=== PATIENT | male | born 1945 | race Caucasian/White ===

== ENCOUNTER 2019-07-15 17:57 | Inpatient (IN) | payer MEDICARE, OTHER ==
[~2019-07-15] VITALS: Ht 177.8 cm; Wt 120.2 kg
[~2019-07-15 17:57] MED LIST: ACCUNEB SO1.25 MG/1; AEROSPAN8.9 GM; ASPIRIN81 M2 PO; AUGMENTIN 875875 MG PO; AZILECT1 MG; B12INJ; CALCIUM 500 +1 EAC6 PO; CARAFATE 1 GM TA1 G1 PO; CARBIDOPA-LEVO1 EAC9 PO; CLONAZEPAM 0.50.5 M1 PO; COUMADIN 2.5MG2.5 M1 PO; COUMADIN 5 MG TA5 M1 PO; ENBREL 25 MG KI25 M1 SUBQ; ENTACAPONE200 M1 PO; FINASTERIDE5 MG PO; FLOMAX0.4 MG; FLOMAX0.4 MG PO; FOLIC ACID1 MG PO; FUROSEMIDE 20 M20 M1 PO; KEFLEX500 MG PO; LANSOPRAZOLE15 MG; LEVEMIR FL100 UNIT/2 SUBQ; LEVEMIR SUBQ; LISINOPRIL10 MG PO; LISINOPRIL20 MG PO; LUNESTA2 MG PO; MACROBID 100 M100 M1; METHOTREXATE 22.5 M1 PO; METOPROLOL SUCC25 M1 PO; MIRALAX17 GM; MIRALAX17 GM PO; MS CONTIN15 MG; MS CONTIN15 MG PO; MULTI VITAMIN1 EACH PO; NEURONTIN 300300 M1 PO; NORCO 5-325 TA1 EAC1 PO; NOVOLOG100 UNIT/1 SUBQ; OMEPRAZOLE 20 M20 M1 PO; OMEPRAZOLE40 MG PO; POTASSIUM CHLO10 ME1 PO; POTASSIUM20 PO; PREDNISONE 5 MG5 M1 PO; PRIMIDONE50 MG PO; REGLAN 10 MG TA10 MG PO; SIMVASTATIN40 MG PO; SIMVASTATIN80 MG PO; STOOL SOFTENER50 MG PO; SULFASALAZINE500 M5 PO; TAMSULOSIN HCL0.4 M1 PO; TOPROL XL25 MG; VENLAFAXIN75 MG/1 T2 PO; XARELTO15 MG PO; XARELTO20 MG PO
[2019-07-15 18:03] VITALS: BP 140/63
[2019-07-15 18:57] LABS: ABSOLUTE EOSINOPHILS 0.2 thou/uL (0.0-0.7); ABSOLUTE LYMPHOCYTES 1.9 thou/uL (0.8-5.3); ABSOLUTE MONOCYTES 0.7 thou/uL (0.0-1.2); ABSOLUTE NEUTROPHILS 6.1 thou/uL (1.6-8.1); BASOPHILS 0.4 %; EOSINOPHILS 2.1 %; HEMOGLOBIN 11.7 gm/dL (14.0-18.0); MCH 29.9 pg (26.0-34.0); MCHC 33.4 g/dL (28.0-37.0); MCV 89.4 fL (80.0-100.0); MONOCYTES 8.3 %; MPV 7.7 fl. (7.2-11.1); NUCLEATED RBCS 0 /100WBC; PLATELET COUNT* 211 thou/uL (150-400); POLYS 68.2 %; RBC 3.91 mil/uL (4.50-6.00); RDW-CV 16.6 % (10.5-14.5); WBC 8.9 thou/uL (4.0-11.0)
[2019-07-15 19:06] LABS: CALCIUM 8.2 mg/dL (8.5-10.1); CREATININE 0.8 mg/dL (0.6-1.3); POTASSIUM 3.8 mmol/L (3.5-5.1)
[2019-07-15 19:10] LABS: TOTAL BILIRUBIN 0.4 mg/dL (<0.1-1.0); TOTAL PROTEIN 7.2 g/dL (6.4-8.2)
[2019-07-15 20:50] VITALS: BP 94/44
[2019-07-15 21:10] VITALS: BP 140/47
[2019-07-16] MEDS ORDERED: PROAIR HFA8.5 GM INH (03:48)
[2019-07-16] MEDS ORDERED: FIBERCON CHEWA625 MG PO (03:50)
[2019-07-16] MEDS ORDERED: VITAMIN D350 MCG PO (03:52)
[2019-07-16] MEDS ORDERED: PAIN RELIEF EX500 MG PO (03:54)
[2019-07-16] MEDS ORDERED: A AND D OINTM42.5 GM TOP (03:55)
[2019-07-16] MEDS ORDERED: CLOTRIMAZOLE 1%15 G1 TOP (03:59)
[2019-07-16] MEDS ORDERED: VITAMIN B-121000 MCG PO (04:02)
[2019-07-16] MEDS ORDERED: FLONASE 0.05%50 MCG NASAL (04:04)
[2019-07-16] MEDS ORDERED: GUAIFENESIN400 MG PO (04:09)
[2019-07-16] MEDS ORDERED: LANSOPRAZOLE30 MG PO (04:15)
[2019-07-16] MEDS ORDERED: CLARITIN10 M2 PO (04:16)
[2019-07-16] MEDS ORDERED: REMEDY ANTIFUNG85 GM TOP (04:30)
[2019-07-16] MEDS ORDERED: JANTOVEN2 MG PO (04:37)
[2019-07-16] MEDS ORDERED: LORAZEPAM 0.50.5 MG PO (04:37)
[2019-07-16] MEDS ORDERED: MAGNESIUM400 M1 PO (04:38)
[2019-07-16] MEDS ORDERED: IPRAT-ALBUT 0.5-3 ML INH (04:39)
--- NOTE | 2019-07-16 05:47 | NUR ---
RECEIVED PT FROM ED PER CART AT APPROX 2110. PT IS AWAKE AND ORIENTED X4. ASSESSMENT DONE AND CHARTED. PT HAS REDNESS AND SWELLING AND SOME WEEPING ON LEFT LOWER EXTREMITY, SOME DISCOLORATION ON THE RIGHT LOWER EXTREMITY. REDNESS ON THE BOTTOM, AND AN UNSTAGEABLE ULCER ON THE SACRAL AREA IS ALSO NOTED. WOUND PICTURES TAKEN AND WOUND CARE DONE, WOUND CARE CONSULT PLACED. PT IS ADVISED ON THE USE OF CALL LIGHT. FREQUENTLY USED ITEMS WITHIN REACH. HIGH FALL PRECAUTIONS IN PLACE. HOURLY ROUNDING DONE FOR PT SAFETY.
[2019-07-16 08:13] VITALS: BP 113/42
[2019-07-16] MEDS ORDERED: CARBIDOPA-LEVO1 EAC5 PO (09:09)
[2019-07-16] MEDS ORDERED: FUROSEMIDE 20 M20 M1 PO (09:11)
--- NOTE | 2019-07-16 11:44 | NUR ---
Nutrition: consult for wounds noted on rt leg and sacrum; awaiting evaulation. No wt hx, no intake record for breakfast. BMI indicates class II morbid obesity. Albumin 3.0. Meds reviewed. Pt sleeping soundly at visit. Pt ER report, pt with hx of chronic leg wounds. With limited info available, assess at low-mild nutrition risk. Will order Dylan BID.
[2019-07-16 16:00] VITALS: BP 148/71
--- NOTE | 2019-07-16 16:07 | NUR ---
ASSUMED CARE OF PT AROUND 0730 THIS AM. REFER TO ASSESSMENT. REINA PLACED THIS SHIFT FOR URINARY RETENTION. PT UNABLE TO COMPLETE US TO BLE THIS SHIFT D/T URINARY RETENTION. WILL RESCHEDULE FOR TOMORROW. PT/OT CONSULTED THIS SHIFT. ID CONSULTED THIS SHIFT. PHYSICIAN REQUESTING TO LEAVE LLE CELLULITIS RIGOBERTO AT THIS TIME. WOUND CARE CONSULTED THIS SHIFT. VSS. NO OTHER CONCERNS AT THIS TIME. CLWR. WCTM
[2019-07-16 16:33] LABS: URINE BILIRUBIN NEGATIVE (Negative); URINE BLOOD NEGATIVE (Negative); URINE CLARITY CLEAR; URINE COLOR YELLOW; URINE GLUCOSE-RANDOM NEGATIVE (Negative); URINE KETONES NEGATIVE (Negative); URINE LEUKOCYTES NEGATIVE (Negative); URINE NITRITE NEGATIVE (Negative); URINE PROTEIN NEGATIVE (Negative); URINE UROBILINOGEN 0.2 E.U./dl (0.2-1.0)
--- NOTE | 2019-07-16 16:59 | NUR ---
SW met with pt to complete initial assessment, introduce self, and SW role. Pt lives at home in an Independent living apt called [facility]. pt has oxygen at home through [employer] (sp?), motorized wc. pt has HH through [facility] and hospice. Pt has an aide through [facility] 3 x wk for bathing and housecleaning. SW to continue to follow to assist with safe dc planning.
[2019-07-16 19:30] VITALS: BP 133/61
[2019-07-17 05:36] LABS: HEMOGLOBIN 9.8 gm/dL (14.0-18.0); MCH 29.8 pg (26.0-34.0); MCHC 33.7 g/dL (28.0-37.0); MCV 88.5 fL (80.0-100.0); RBC 3.27 mil/uL (4.50-6.00); WBC 7.2 thou/uL (4.0-11.0)
[2019-07-17 05:46] LABS: INR 1.9; PROTIME 19.3 Seconds (9.20-11.50)
[2019-07-17 05:54] LABS: CALCIUM 7.5 mg/dL (8.5-10.1); CREATININE 0.7 mg/dL (0.6-1.3); MAGNESIUM 1.6 mg/dL (1.8-2.4); POTASSIUM 3.6 mmol/L (3.5-5.1)
[2019-07-17 06:20] VITALS: BP 123/55
--- NOTE | 2019-07-17 07:20 | NUR ---
PT SLEPT WELL THIS SHIFT. VSS ON 3L 02. MEDS GIVEN PER EMAR. Q2 TURN. FALL PRECAUTION IN PLACE. [facility] HOURLY ROUNDINGS MADE. WILL CONTINUE TO MONITOR.
[2019-07-17 08:35] VITALS: BP 127/55
[2019-07-17 12:23] LABS: % SATURATION 16 % (20-39); IRON 34 ug/dL (50-175)
[2019-07-17 17:04] VITALS: BP 113/39
--- NOTE | 2019-07-17 17:11 | NUR ---
PATIENT RESTING IN BED. PATIENT DENIES ANY PAIN. PATIENT WORKED WITH PHYSICAL THERAPY THIS AFTERNOON. PATIENT HAS ULTRASOUND THIS AM WITHOUT INCIDENT. PATIENT DENIES ANY NEEDS AT THIS TIME. CALL LIGHT WITHIN REACH.
[2019-07-17 20:00] VITALS: BP 141/64
--- NOTE | 2019-07-18 06:45 | NUR ---
PT SLEPT WELL THIS SHIFT. MEDS GIVEN PER EMAR. VSS ON 2L NC. NO BM NOTED THIS SHIFT. FALL PRECAUTION IN PLACE. Q2 TURN. CALL LIGHT WITHIN REACH. HOURLY ROUNDINGS MADE. WILL CONTINUE TO MONITOR.
[2019-07-18 07:27] LABS: HEMATOCRIT 30.7 % (42.0-52.0); HEMOGLOBIN 10.3 gm/dL (14.0-18.0); MCH 29.8 pg (26.0-34.0); MCHC 33.7 g/dL (28.0-37.0); MCV 88.6 fL (80.0-100.0); MPV 7.4 fl. (7.2-11.1); RBC 3.47 mil/uL (4.50-6.00); WBC 7.4 thou/uL (4.0-11.0)
[2019-07-18 07:32] LABS: INR 1.9; PROTIME 18.8 Seconds (9.20-11.50)
[2019-07-18 07:37] LABS: ALBUMIN 1.9 g/dL (3.4-5.0); CALCIUM 7.7 mg/dL (8.5-10.1); CREATININE 0.8 mg/dL (0.6-1.3); MAGNESIUM 1.5 mg/dL (1.8-2.4); POTASSIUM 3.6 mmol/L (3.5-5.1)
[2019-07-18 08:30] VITALS: BP 112/54
[2019-07-18 09:40] VITALS: BP 104/54
[2019-07-18 09:45] VITALS: BP 123/74
[2019-07-18 09:50] VITALS: BP 119/65
--- NOTE | 2019-07-18 12:56 | CON ---
[address] [address] CONSULTATION Name: LAKIA BENTON Room: [address] IN M.R.#: [id number] Admission: 07/15/19 Attend Phys: Allison Nelson MD Discharge: Date of : 41 Report #: [id number] THIS REPORT FOR: //name// cc: [facility] physician unknown [facility] physician unknown ~ THIS REPORT FOR: //name// CC: [facility] unknown [facility] Allison Nelson DATE OF SERVICE: 07/17/2019 INFECTIOUS DISEASE CONSULTATION ATTENDING PHYSICIAN: Allison Nelson M.D. REASON FOR EVALUATION: Left lower extremity inflammatory eruption is certainly a component of cellulitis, suspect chronic venous stasis insufficiency with dermatitis as well. HISTORY OF PRESENT ILLNESS: Chart reviewed, patient examined. This is a 73-year-old with fairly significant medical history including diabetes mellitus and rheumatoid arthritis, who has ongoing issues with repeated inflammatory eruptions, had issues bilaterally; right however cleared up, the left has recurrent inflammation. Tentatively diagnosed with cellulitis, has been hospitalized apparently on quite a few occasions, repeatedly responds to systemic therapy, I think primarily directed against staph and strep who notes had been on antibiotics for a number of weeks, who noted increasing pain and swelling associated with the left lower extremity, had been utilizing wound care with compression including a circaid bilaterally. Denies systemically having illness, although T-max overnight was 100.3. Denies any pulmonary or gastrointestinal-related complaints. His appetite has been generally good. Empirically started on combination with piperacillin, tazobactam as well as vancomycin, he is not toxic. ALLERGIES: LISTED TO METFORMIN AND PENTAZOCINE. CURRENT MEDICATIONS: Include warfarin, fluticasone, cyanocobalamin, cholecalciferol, folic acid, finasteride, furosemide, Sinemet, tamsulosin, prednisone 2.5 mg p.o. b.i.d., atorvastatin, metoprolol, primidone, insulin, Zosyn, lisinopril, loratadine, guaifenesin, , sucralfate, vancomycin, morphine as needed, and ondansetron as needed. PAST MEDICAL HISTORY: As noted above, diabetes mellitus type 2, history of Parkinson's, rheumatoid arthritis, osteoarthritis, fibromyalgia, [place] [address] CONSULTATION Name: LAKIA BENTON Room: [address]#: [id number] Admission: 07/15/19 Attend Phys: Allison Nelson MD Discharge: Date of : 43 Report #: [id number] history of DVT a number of years ago, irritable bowel syndrome, hypertension, and colon resection. SOCIAL HISTORY: Former smoker. No ethanol. No illicit drug use. FAMILY HISTORY: Noncontributory. REVIEW OF SYSTEMS: Otherwise unremarkable 10-point review of systems with the exception of the above. PHYSICAL EXAMINATION: GENERAL: He is pleasant, alert, cooperative, appears somewhat chronically ill, mildly undernourished. VITAL SIGNS: Temperature 98.2, pulse 62, respirations 18, blood pressure 127/55. SKIN: Warm, dry, no rashes. HEENT: Normocephalic. Extraocular muscles intact. NECK: Supple. LUNGS: Diminished, otherwise clear breath sounds. HEART: Regular. Borderline bradycardic. I do not appreciate a murmur. ABDOMEN: Soft, somewhat distended, obese, nontender. EXTREMITIES: Left lower extremity has a dyshidrotic appearance peeling skin in the setting of a clear dermopathy, may be a combination of venous stasis insufficiency and dermatitis, perhaps a component of diabetes-related complications as well. Distally difficult to ascertain a pulse. Previous left great toe amputation. There are no ulcerative lesions that are apparent. There were some eschars that were left intact. No bullous lesions, not overtly tender to palpation. Venous stasis, lower extremities show no evidence of DVT. GENITOURINARY: Deferred. RECTAL: Deferred. LABORATORY DATA: Blood cultures are sterile thus far. Electrolytes: Sodium 138, potassium 3.6, chloride 104, bicarb is 29, anion gap of 5, BUN and creatinine 9 and 0.7, albumin is low at 2.0, estimated GFR of 110. PT 19.3 and INR of 1.9. CBC, white count of 7.2, H and H 9.8 and 29.0, platelets of 178. Urinalysis is unremarkable. Liver functions were otherwise unremarkable. Total protein is 7.2. ASSESSMENT: Left lower extremity inflammatory eruption. It is almost certainly multifactorial. I think there is a component of skin and soft tissue infection with cellulitis. We will continue empiric antimicrobial therapy via parenteral route for the moment. Had a fairly lengthy discussion with the patient about these recurrent situations, quite difficult and underlying issue, certainly compression is a large factor, good skin health, try to elevate as much as possible. I do not know if there is any evidence arterial disease. He states [address] [place] [address] CONSULTATION Name: LAKIA BENTON Room: [address] IN M.R.#: [id number] Admission: 07/15/19 Attend Phys: Allison Nelson MD Discharge: Date of : 41 Report #: [id number] the arterial Dopplers he has had previously were otherwise unrevealing, may benefit from debridement at some point, we will await the results. <ELECTRONICALLY SIGNED> By: Pramod Deras MD 07/18/19 1256 1609 [id number] Deras MD /nt
--- NOTE | 2019-07-18 15:58 | NUR ---
WOUND NURSE: PATIENT SEEN TO ADDRESS COCCYX STAGE 3 PRESSURE INJURY, MEASURES 1.0 X 1.3 X 0.7 CM. PINK TO RED GRANULATION TISSUE IN THE WOUND BED. SMALL AMOUNT OF SEROUS DRAINAGE. CLEANSED WITH SOAP AND WATER, RINSED WITH WATER, THEN PATTED DRY. APPLIED SKIN PREP TO PERIWOUND TISSUE. PACKED LIGHTLY WITH AQUACEL AG UNDER BORDERED FOAM DRESSING. PATIENT REPOSITIONED ONTO HIS LEFT SIDE. PATIENT WITH LLE CELLULITIS AND SKIN IS DRY, SCALY, WARM TO TOUCH. DORSAL FOOT WITH THIN INFLAMMED SKIN, NO ACTIVE DRAINAGE PRESENT.CLEANSED WITH SOAP AND WATER, RINSED WITH WATER, THEN PATTED DRY. APPLIED CLEAR AID MOISTURE BARRIER TO INTACT SKIN TOES TO KNEE, APPLIED XERFORM GAUZE UNDER ABD TO DORSAL FOOT INFLAMMED SKIN, THEN WRAPPED TOES TO KNEE WITH KERLEX ROLL GAUZXE UNDER AKIKO WRAP. PATIENT INSTRUCTED ON NEED TO ELEVATE BLE ON PILLOWS FOR EDEMA CONTROL AND Q 2 HOUR REPOSITIONING SIDE TO SIDE FOR PRESSURE RELEIEF TO COCCYX . PATIENT STATES HE HAS SPECIAL SEAT CUSHIION WITH CUT OUT FOR COCCYX PRESSURE RELIEF AT HOME. PATIENT REMINED HE NEEDS TO USE IT IN HIS CHAIR WHEN SITTIING. PATIENT STATES HE UNDERSTANDS THE INSTRUCTIONS PROVIDED.
[2019-07-18 16:00] VITALS: BP 111/38
--- NOTE | 2019-07-18 16:13 | EKG ---
[place] [address] ELECTROCARDIOGRAM REPORT Name: LAKIA BENTON Room: [address] ADM IN .R.#: [id number] Admission: 07/15/19 Attend Phys: Allison Nelson, Discharge: Date of : 41 Date of Service: 07/18/19 1021 Report #: [id number] THIS REPORT FOR: //name// [place] Test Date: 2019-07-18 Test Time: 10:21:19 Pat Name: LAKIA BENTON Department: Room: [address] Gender: M It Applications Manager: JANIS : 1945 Requested By: Sana Mills Order Number: [id number] Adan MD: Oswald Bobby Measurements Intervals Tucker Rate: 62 P: 161 LA: 212 QRS: 99 QRSD: 143 T: 175 QT: 463 QTc: 471 Interpretive Statements Sinus or ectopic atrial rhythm,consider lead switch Atrial premature complex Borderline prolonged LA interval RBBB Borderline repolarization abnormality Compared to ECG 06/16/2006 20:33:47 Ectopic atrial rhythm now present Atrial premature complex(es) now present Intraventricular conduction delay now present Myocardial infarct finding no longer present Electronically Signed On 07-18-2019 16:12:10 CDT by Oswald Bobby [email or web address] <ELECTRONICALLY SIGNED> By: Oswald Bobby MD, [facility] 07/18/19 1612 1021 1021 Oswald Bobby MD, [facility] /EPI
--- NOTE | 2019-07-18 19:39 | NUR ---
PATIENT RESTING IN BED. PATIENT DEIES ANY PAIN. PATIENT HAD EPISODE OF DIAPHORESIS AND DIZZINESS THIS AM AND DR NELSON NOTIFIED AND ROUNDED ON PATIENT. PATIENT HAS DENIED ANY FURTHER EPISODE. PATIENT SEEN BY WOUND CARE NURSE THIS AFTERNOON AND DRESSING APPLIED TO LEFT LEG. PATIENT HAS GOOD APPETITE. PATIENT DENIES ANY NEEDS AT THIS TIME. CALL LIGHT WITHIN REACH.
[2019-07-18 20:00] VITALS: BP 121/47
--- NOTE | 2019-07-19 04:36 | NUR ---
PT A&O. ON 2L BY MI. MEDS GIVEN ORDERED. DRESSINGS C/D/I. LOWER EXTREMITIES ELEVATED ON PILLOW. REINA IN PLACE. HOURLY ROUNDINGS, TURNS COMPLETED. NO OTHER CONCERNS AT THIS TIME. WILL CONTINUE TO MONITOR.
[2019-07-19 04:50] LABS: HEMATOCRIT 27.8 % (42.0-52.0); HEMOGLOBIN 9.5 gm/dL (14.0-18.0); MCH 30.2 pg (26.0-34.0); MCHC 34.2 g/dL (28.0-37.0); MCV 88.1 fL (80.0-100.0); MPV 7.8 fl. (7.2-11.1); RBC 3.16 mil/uL (4.50-6.00); RDW-CV 15.9 % (10.5-14.5)
[2019-07-19 04:57] LABS: INR 1.8; PROTIME 18.2 Seconds (9.20-11.50)
[2019-07-19 05:06] LABS: ALBUMIN 1.8 g/dL (3.4-5.0); CALCIUM 7.4 mg/dL (8.5-10.1); CREATININE 0.9 mg/dL (0.6-1.3); MAGNESIUM 1.8 mg/dL (1.8-2.4); PHOSPHORUS* 3.1 mg/dL (2.5-4.9); POTASSIUM 3.6 mmol/L (3.5-5.1)
[2019-07-19 08:05] VITALS: BP 122/61
[2019-07-19 16:00] VITALS: BP 101/55
--- NOTE | 2019-07-19 16:45 | NUR ---
Pt to dc home on Monday with HH services; pt current with [facility] ph [phone] fax [phone]. SW sent H & P and face sheet, orders/med list to be sent upon dc day.
--- NOTE | 2019-07-19 18:52 | NUR ---
PT A&OX4 VSS. PT UP SBA TO BSC. LLE UNWRAPPED AND EXAMINED BY DR CARRASCO TODAY. DRESSING REPLACED BY THIS NURSE DIRECTED. PT ON 3L O2 BY [place]. PT IS ACCUCHECK, INSULIN ADMINISTERED ORDERED. PT HAS REINA CATHETER IN PLACE, PATENT W/YELLOW URINE IN COLLECTION BAG. B/P MEDS HELD THIS AM D/T LOWER READINGS. DR NELSON AWARE, DOSAGE MAY BE ADJUSTED BY PHYSICIAN TO ADDRESS THIS. PT REMAINS FOR CONTINUED IV ABX PER DR CARRASCO. PT RESTS IN BED WITH CALL LIGHT IN REACH. WILL CONTINUE TO MONITOR.
[2019-07-19 19:50] VITALS: BP 130/60
[2019-07-20 04:00] LABS: INR 1.8; PROTIME 17.8 Seconds (9.20-11.50)
--- NOTE | 2019-07-20 04:41 | NUR ---
ASSUMED CARE OF PT 07/19/19 AT APPROX 1915. PT A&OX4, ON 3L NC, NUNO MCCLELLAND IN PLACE, PT TURNED Q2H. SCHEDULED PAIN MEDS GIVEN ORDERED. WILL CONTINUE WITH PLAN OF CARE.
[2019-07-20 07:55] VITALS: BP 129/71
[2019-07-20 16:00] VITALS: BP 114/59
[2019-07-20 23:54] VITALS: BP 121/45
[2019-07-21 04:23] LABS: PROTIME 30.6 Seconds (9.20-11.50)
[2019-07-21 04:31] LABS: INR 3.1
--- NOTE | 2019-07-21 06:33 | NUR ---
PATIENT SLEPT PART OF THE NIGHT. IV FLUIDS AND ANTIBIOTICS WERE GIVEN ORDERED. PATIENT WAS GIVEN TYLENOL ONCE FOR PAIN IN ADDITION TO SCHEDULED MORPHINE. REINA REMAINS TO DEPENDENT DRAIN. WILL CONTINUE TO MONITOR.
[2019-07-21 08:05] VITALS: BP 125/63
[2019-07-21] MEDS ORDERED: FLUCONAZOLE200 MG PO (12:18)
[2019-07-21] MEDS ORDERED: MINOCYCLINE HC100 M2 PO (12:19)
[2019-07-21 12:31] VITALS: BP 125/63
--- NOTE | 2019-07-21 16:25 | NUR ---
PATIENT DISCHARGED TO HOME WITH HOME HEALTH. DISCHARGE PAPERS REVIEWED AND SIGNED. PRESCRIPTIONS CALLED TO PHARMACY. IV REMOVED. PATIENT ASSISTED WITH PACKING BELONGINGS AND GETTING DRESSED. WOUNDS REDRESSED. NO CAMERA AVAILABLE FOR DISCHARGE PHOTOS. PATIENT DENIES ANY FURTHER NEEDS. PATIENT TAKEN BY WHEELCHAIR VAN AT THIS TIME.
== END 2019-07-21 16:25 | disposition home health service (06) | DRG 603 ==
LOC: M.ERS 17:57 → M.TBA-ER 19:44 → M.3W 19:44 → M.TBA-ER 20:42 → M.3W 21:10
PROVIDERS: Family Medicine; Physician Assistant; ADMIT Internal Medicine; ATTEND Internal Medicine
PROC: 05HH33Z Insertion of Infusion Device into Left Hand Vein, Percutaneous Approach (ICD-10-PCS; principal; 2019-07-15)
DX: L03.116 Cellulitis of left lower limb (principal); J96.10 Chronic respiratory failure, unspecified whether with hypoxia or hypercapnia; E44.1 Mild protein-calorie malnutrition; K58.9 Irritable bowel syndrome, unspecified; G20 Parkinson's disease; M19.90 Unspecified osteoarthritis, unspecified site; M79.7 Fibromyalgia; I87.8 Other specified disorders of veins; L30.9 Dermatitis, unspecified; I89.0 Lymphedema, not elsewhere classified; G25.81 Restless legs syndrome; E66.01 Morbid (severe) obesity due to excess calories; E11.51 Type 2 diabetes mellitus with diabetic peripheral angiopathy without gangrene; J44.9 Chronic obstructive pulmonary disease, unspecified; I25.10 Atherosclerotic heart disease of native coronary artery without angina pectoris; E78.5 Hyperlipidemia, unspecified; I10 Essential (primary) hypertension; M06.9 Rheumatoid arthritis, unspecified; Z98.1 Arthrodesis status; Z90.49 Acquired absence of other specified parts of digestive tract; Z86.718 Personal history of other venous thrombosis and embolism; Z88.8 Allergy status to other drugs, medicaments and biological substances; Z79.899 Other long term (current) drug therapy; Z79.4 Long term (current) use of insulin; Z79.01 Long term (current) use of anticoagulants; Z87.891 Personal history of nicotine dependence; Z68.38 Body mass index [BMI] 38.0-38.9, adult; Z99.81 Dependence on supplemental oxygen; Z86.711 Personal history of pulmonary embolism

== ENCOUNTER 2019-09-16 13:02 | Inpatient (IN) | payer OTHER ==
[~2019-09-16] VITALS: Ht 177.8 cm; Wt 107.5 kg
--- NOTE | ~2019-09-16 | CON ---
[address] [address] CONSULTATION Name: LAKIA BENTON Room: [address] IN M.R.#: [id number] Admission: 09/16/19 Attend Phys: Zbigniew Richard MD Discharge: Date of : 41 Report #: [id number] THIS REPORT FOR: //name// cc: [facility] physician unknown [facility] physician unknown ~ THIS REPORT FOR: //name// CC: Zbigniew Richard [facility] unknown [employer] [facility] DATE OF SERVICE: 09/17/2019 HISTORY OF PRESENT ILLNESS: This is a 73-year-old male patient who was evaluated by me for Parkinson disease. This patient gives a complicated history. He indicates that he has Parkinson disease for a long time. He has not walked for a long time either and uses an electric wheelchair. I am not sure whether that is entirely because of Parkinson disease because he indicates that he also had surgery on his back in the past. He developed cellulitis in the lower extremities. He was admitted to [facility] and has become pretty significantly weak in both lower extremities now. According to him, the weakness is much worse than before. He was what looks like in residential facility and few members tested positive for COVID, but his COVID test was negative. He follows up with a neurologist at [facility], but he does not remember the name. He had a tremor starting in the right upper extremity long time ago and then it spread to the left upper extremity. Those symptoms appeared to be stable. He has the workup done with his neurologist in the past. REVIEW OF SYSTEMS: Indicate that he has a history of fibromyalgia, osteoarthritis, rheumatoid arthritis, diabetes, diabetic neuropathy, big toe amputation, DVT, knee surgery, hypertension, back surgery, colon resection, shoulder problem. This was his relevant 14-point review of systems. PAST MEDICAL HISTORY: Positive for Parkinson disease. FAMILY HISTORY: Unremarkable. SOCIAL HISTORY: He does not drink any alcohol. PHYSICAL EXAMINATION: Indicate he is alert. He is responsive. He does have some memory issues like he did not remember the name of his neurologist, but his speech looks intact. He thinks that is the baseline. Cranial nerve examination 2-12 looks mostly unremarkable. He believes his strength in the upper extremity is his baseline and he does do fairly well with that. In the lower extremities, he does have movement, but it is markedly diminished. He could not appreciate the position sense at all and whatever examination as [place] [address] CONSULTATION Name: LAKIA BENTON Room: [address] IN [facility]#: [id number] Admission: 09/16/19 Attend Phys: Zbigniew Richard MD Discharge: Date of : 41 Report #: [id number] the bandages does not look like he has any reflexes there. His tone is difficult to tell. He does not appear to be ataxic in the upper extremity. I could not look at the fundus. He does have some tremor, but that is relatively mild and his baseline. He does not have any thyroid mass. There is no carotid bruit. I cannot tell about pulses in the lower extremities. Cardiac and respiratory examination is unremarkable. Blood pressure is 155/75, respirations 18, pulse is 69, temperature is 98.5. His hemoglobin is low at 9.9. He did not have any imaging studies of the brain. He does have some swelling in the lower extremities, but that may be because of his cellulitis there. IMPRESSION AND PLAN: Pretty difficult to form in this patient. He does have neuropathy and that is probably because of diabetes. He also developed cellulitis. I think that aggravated his condition along with deconditioning, but something like spine pathology including spinal epidural abscess, etc. need to be excluded. He said he has no contraindication for MRI, so we will go ahead and do the MRI. We will also do some workup for neuropathy. We will see what rehab says and that is where he probably needs to go. I will also suggest checking an arterial Doppler of the lower extremities whenever that is possible. All of it was discussed with the patient in detail and he wants to follow this plan. Thank you very much for this referral. By: 1308 1408Herman Trejo MD /elizabeth
[2019-09-16 13:02] VITALS: BP 153/62
[~2019-09-16 13:02] MED LIST changes: +A AND D OINTM42.5 GM TOP; +CARBIDOPA-LEVO1 EAC5 PO; +CLARITIN10 M2 PO; +CLOTRIMAZOLE 1%15 G1 TOP; +FIBERCON CHEWA625 MG PO; +FLONASE 0.05%50 MCG NASAL; +FLUCONAZOLE200 MG PO; +GUAIFENESIN400 MG PO; +IPRAT-ALBUT 0.5-3 ML INH; +JANTOVEN2 MG PO; +LANSOPRAZOLE30 MG PO; +LORAZEPAM 0.50.5 MG PO; +MAGNESIUM400 M1 PO; +MINOCYCLINE HC100 M2 PO; +PAIN RELIEF EX500 MG PO; +PROAIR HFA8.5 GM INH; +REMEDY ANTIFUNG85 GM TOP; +VITAMIN B-121000 MCG PO; +VITAMIN D350 MCG PO
[2019-09-16] MEDS ORDERED: LANTUSSOLASTAR SUBQ (13:32)
[2019-09-16] MEDS ORDERED: HUMALOG JU100 UNIT/1 SUBQ (13:34)
[2019-09-16 13:49] LABS: ABSOLUTE BASOPHILS 0.1 thou/uL (0.0-0.2); ABSOLUTE EOSINOPHILS 0.2 thou/uL (0.0-0.7); ABSOLUTE LYMPHOCYTES 1.5 thou/uL (0.8-5.3); ABSOLUTE MONOCYTES 0.6 thou/uL (0.0-1.2); ABSOLUTE NEUTROPHILS 4.6 thou/uL (1.6-8.1); BASOPHILS 0.7 %; EOSINOPHILS 2.9 %; HEMATOCRIT 28.5 % (42.0-52.0); HEMOGLOBIN 9.7 gm/dL (14.0-18.0); LYMPHOCYTES 21.6 %; MCH 30.1 pg (26.0-34.0); MCV 88.6 fL (80.0-100.0); MPV 7.7 fl. (7.2-11.1); NUCLEATED RBCS 0 /100WBC; PLATELET COUNT* 164 thou/uL (150-400); POLYS 66.8 %; RBC 3.22 mil/uL (4.50-6.00); RDW-CV 15.7 % (10.5-14.5); WBC 6.9 thou/uL (4.0-11.0)
[2019-09-16 14:00] LABS: CALCIUM 7.9 mg/dL (8.5-10.1); CREATININE 0.7 mg/dL (0.6-1.3); POTASSIUM 3.7 mmol/L (3.5-5.1)
[2019-09-16 14:05] LABS: ALBUMIN 2.2 g/dL (3.4-5.0); TOTAL BILIRUBIN 0.4 mg/dL (<0.1-1.0)
[2019-09-16 14:47] LABS: URINE BILIRUBIN NEGATIVE (Negative); URINE BLOOD NEGATIVE (Negative); URINE CLARITY SL CLOUDY; URINE COLOR YELLOW; URINE GLUCOSE-RANDOM NEGATIVE (Negative); URINE KETONES 1+ (Negative); URINE PROTEIN NEGATIVE (Negative); URINE UROBILINOGEN 0.2 E.U./dl (0.2-1.0)
[2019-09-16 14:51] LABS: URINE LEUKOCYTES-REFLEX 2+ (Negative); URINE NITRITE-REFLEX POSITIVE (Negative)
[2019-09-16 14:58] LABS: BACTERIA-REFLEX >30 Many /HPF (None Seen); CASTS None Seen /LPF (None Seen); CRYSTALS None Seen /LPF (None Seen); SQUAMOUS 0-3 Few /LPF (0-3); URINE RBC 0-2 Rare /HPF (0-2); WBC CLUMPS Few (None Seen)
[2019-09-16 16:36] LABS: INR 2.7; PROTIME 26.8 Seconds (9.20-11.50)
[2019-09-16 16:38] VITALS: BP 168/74
--- NOTE | 2019-09-16 16:45 | NUR ---
PT ADMITTED TO JOINT SPINE UNIT. A&OX 4, P,W,D. INDWELLING REINA CATH INTACT AND PATENT. STAT LOCK TO RIGHT LEG. CLEAR MANUEL COLOR URINE NOTED. RIGHT HAND/WRIST RED AND SWOLLEN. WEAK IN ALL EXTREMITIES. NEEDS ASSIST TO EAT. WOUND DRESSING ON COCCYX AND FRANK LOWER LEGS WRAPPED DUE TO LYMPHEDEMA. WOUND CARE CONSULT IN AND WILL CALL THEM IN AM. PT GETS SCHEDULED PAIN MEDS FOR HX FIBROMYALGIA PAIN. WILL CONT. TO MONITOR.
--- NOTE | 2019-09-16 17:00 | EKG ---
[place] [address] ELECTROCARDIOGRAM REPORT Name: LAKIA BENTON Room: [address] ADM IN .R.#: [id number] Admission: 09/16/19 Attend Phys: Zbigniew Richard, Discharge: Date of : 41 Date of Service: 09/16/19 1309 Report #: [id number] THIS REPORT FOR: //name// [facility] ED Test Date: 2019-09-16 Test Time: 13:09:21 Pat Name: LAKIA BENTON Department: Room: [facility] Gender: M Getter Operator: CCD : 1945 Requested By: Kwame Blackwood Order Number: [id number] MD: Abdifatah Dewitt Measurements Intervals Howell Rate: 70 P: -4 OK: 208 QRS: 32 QRSD: 138 T: 3 QT: 428 QTc: 462 Interpretive Statements Sinus rhythm Right bundle branch block Compared to ECG 07/18/2019 10:21:19 Atrial premature complex(es) no longer present Electronically Signed On 09-16-2019 17:00:06 CDT by Abdifatah Dewitt [email or web address] <ELECTRONICALLY SIGNED> By: Abdifatah Dewitt MD, [facility] 09/16/19 1700 1309 1309 Abdifatah Dewitt MD, [facility] /EPI
[2019-09-16 17:38] VITALS: BP 156/68
[2019-09-16 21:00] VITALS: BP 146/61
[2019-09-17 04:11] LABS: INR 3.7; PROTIME 35.9 Seconds (9.20-11.50)
[2019-09-17 04:20] LABS: CREATININE 0.7 mg/dL (0.6-1.3); POTASSIUM 3.8 mmol/L (3.5-5.1)
[2019-09-17 04:29] LABS: ABSOLUTE EOSINOPHILS 0.2 thou/uL (0.0-0.7); ABSOLUTE LYMPHOCYTES 1.5 thou/uL (0.8-5.3); ABSOLUTE MONOCYTES 0.5 thou/uL (0.0-1.2); ABSOLUTE NEUTROPHILS 3.8 thou/uL (1.6-8.1); BASOPHILS 0.3 %; EOSINOPHILS 2.6 %; HEMATOCRIT 28.9 % (42.0-52.0); HEMOGLOBIN 9.9 gm/dL (14.0-18.0); LYMPHOCYTES 25.5 %; MCH 30.2 pg (26.0-34.0); MCHC 34.2 g/dL (28.0-37.0); MCV 88.3 fL (80.0-100.0); MPV 8.2 fl. (7.2-11.1); NUCLEATED RBCS 0 /100WBC; PLATELET COUNT* 170 thou/uL (150-400); POLYS 63.6 %; RBC 3.27 mil/uL (4.50-6.00)
--- NOTE | 2019-09-17 06:33 | NUR ---
PT SLEEP WAS RESTLESS THIS PM SHIFT. PT URINE IS MANUEL FROM REINA, HE HAS HAD EXCELLENT PO INTAKE. PT HAS VOICED NO COMPLAINTS, WCTM
[2019-09-17 07:15] VITALS: BP 155/75
--- NOTE | 2019-09-17 13:00 | NUR ---
SPOKE WITH PT. HE SAID HE LIVES AT THE [facility]. THESE ARE INDEPENDENT SR.APTS. NO SERVICES PROVIDED. IS CURRENTLY ON SERVICE WITH [facility]. HE ALSO GETS AN AIDE 3X/WEEK FROM [facility]. HE HAS O2 AT HOME THRU [employer] AND A MOTORIZED WC. HE IS NORMALLY ABLE TO TRANSFER TO HIS WC BY HIMSELF. HE IS WEAK AT THIS TIME AND CANNOT DO THIS. SISTER,MEGAN VIGIL IS HIS DPOA . HAD REHAB CONSULT BUT REHAB FEELS SNF MORE APPRORIATE. CALL FROM SIRI/[facility]-[phone]. SHE SAID THEY HAVE SAFETY CONCERNS ABOUT PT.RETURNING HOME ALONE IN CURRENT LIVING SITUATION. CM WILL DISCUSS WITH PT.
--- NOTE | 2019-09-17 13:12 | NUR ---
wound care nurse here looking pt pt's wounds.
--- NOTE | 2019-09-17 14:13 | NUR ---
Nutrition: Pt admitted with weakness, UTI. H/o Parkinsons, anemia, chronic BLE lymphedema. BLE wrapped d/t cellulitis. Ulcer on coccyx. Seen for pressure ulcer. Ordered Dylan BID. Wt: 237#. Eating well, CHO controlled diet. Albumin 2.2, prealb 10.6 - severely low, BG 128-144. Increased nutrient needs R/T wound healing AEB labs above, wounds precent. GOALS: tight BG control, Dylan BID. Mild risk.
--- NOTE | 2019-09-17 14:27 | NUR ---
pt to mri
--- NOTE | 2019-09-17 14:37 | NUR ---
WOUND NURSE: [facility] AND LEFT KNEE: PATIENT WAS WRAPPED FROM HOME FOR LYMPHEDEMA BY SOMEONE IN HOME HEALTH SERVICES. COCCYX WOUND MEASURED 2.0 X 1.0 X 1.0CM; CONTAINED 50% RED, GRANULATION TISSUE AND 50% PALE YELLOW SLOUGH. CLEANSED WITH SOAP AND WATER, RINSED WITH WATER, THEN PATTED DRY. APPLIED SKIN PREP TO INTACT PERIWOUND TISSUE. APPLIED THERAHONEY TO WOUND BED, COVERED WITH BORDERED FOAM DRESSING. REMOVED COMPRILAN WRAP FROM RLE, CLEANSED WITH SOAP AND WATER, RINSED, THEN PATTED DRY. APPLIED SINGLE LAYER SIZE E TUBIGRIP FROM TOES TO KNEE. NO RLE WOUND. REMOVED COMPRILAN WRAP FROM LLE AND FOAM DRESSING FROM L KNEE. CLEANSED WITH SOAP AND WATER, RINSED, PATTED DRY. APPLIED CLEAR AID BARRIER RUTH TO INTACT SKIN. APPLIED PETROLATUM GAUZE UNDER ABD TO L KNEE WOUND. WRAPPED LLE WITH KERLEX ROLL GAUZE UNDER AKIKO WRAPS. L KNEE WOUND MEASURED 1.0 X 0.3 X 0.1 CM. PRESENTED WITH PARTIAL THICKNESS TISSUE LOSS, PINK, NONGRANLATING TISSUE IN THE WOND BED, SMALL AMOUNT OF SEROUSANGUINOUS DRAINGE. PATIENT WAS ALSO SEEN BY OT LYMPHEDEMA SPECIALIST AND WE BOTH AGREED NOT TO USE THE COMPRILAN WRAPS WHILE PATIENT IN THE HOSPITAL. PATIENT INSTRUCTED TO KEEP BLE ELEVATED 15 DEG ABOVE HEART TO CONTROL PERIPHERAL EDEMA, ALSO INSTRUCTED ON SIDE TO SIDE REPOSITIONING TO OFF LOAD COCCYX WOUND. OFFERED TO SCHEDULE PATIENT TO BE SEEN IN [facility], BUT PATIENT REPORTS HE DOES NOT HAVE TRANSPORTATION.
--- NOTE | 2019-09-17 16:00 | NUR ---
pt back from MRI. TURNED ON RIGHT SIDE. IV LEFT LATERAL WRIST PAINFUL. STARTED NEW ONE ON LEFT WRIST MEDIAL.
[2019-09-17 16:30] VITALS: BP 98/54
--- NOTE | 2019-09-17 18:36 | NUR ---
A&O X4, PINK, WARM AND DRY. STATES PAIN IS UNDER CONTROL AT THIS TIME. INDWELLING REINA CATH INTACT AND PATENT STAT LOCKED TO RIGHT THIGH. IV PAINFUL SO DC'D IT AND PUT ANOTHER 20G IN LEFT MEDIAL WRIST, FLUSHES WITH EASE. WOUND NURSE CAME TODAY TO EVAL AND DRESS COCCYX FULL THICKNESS WOUND MEASURES 2CM LENGTH X 1CM WIDTH X 1CM DEEP. ALSO TOOK OFF BILATERAL LOWER LEG WRAPS. WASHED BILATERAL LOWER LEGS WITH SOAP AND WATER AND REDRESSED THEM. LEFT LOWER LEG WITH PARTIAL THICKNESS WOUND BELOW THE KNEE MEASURES 1CM LENGTH X .3CM WIDTH X .1 CM DEEP. PT WENT DOWN FOR MRI OF BACK. PATIENT HAS NOT HAD BM X 3 DAYS, MIRALAX GIVEN. PT TURNED TO LEFT SIDE AND BED MOVED SO HE CAN WATCH BASEBALL ON T.V. NO C/O AT THIS TIME. WILL CONTINUE TO MONITOR. TO MONITOR.
[2019-09-17 20:00] VITALS: BP 107/46
[2019-09-18 03:55] LABS: INR 3.7; PROTIME 36.1 Seconds (9.20-11.50)
--- NOTE | 2019-09-18 04:23 | NUR ---
PT A&O X 4, ON 3L BY LEANNE. MEDS GIVEN ORDERED. TYLENOL GIVEN FOR BACK PAIN. DRESSINGS C/D/I. LOWER EXTREMITIES ELEVATED ON PILLOW. REINA IN PLACE. CALL LIGHT WITHIN REACH. TURNS MADE. WILL CONTINUE TO MONITOR.
[2019-09-18 07:40] VITALS: BP 137/71
--- NOTE | 2019-09-18 13:18 | NUR ---
LYMPHEDEMA CONSULT: OT SPOKE WITH WOUNDCARE REGARDING THE COMPRILAN SHORT STRETCH WRAPS IN THE PATIENT'S PERSONAL BELONGINGS. THIS LYMPHEDEMA THERAPIST ADVISES TO D/C WRAPS SECONDARY TO DECREASED MOBILITY AT THIS TIME. THE USE OF SHORT STRETCH BANDAGES IS CONTRAINDICATED WITH SIGNIFICANTLY REDUCED MOBILITY STATUS. THANK YOU FOR THE REFERRAL.
--- NOTE | 2019-09-18 15:14 | NUR ---
cm disucss w/pt HH recommending him for a higher level of care. cm explored [facility] and LTC opions. pts stated "i feel safe being at home. I feel stronger now then when i came in when I get up and pivotng in my chair." My beleives PT will help him regain strength. pt signed vendor of choice form. pt does no wan to use [employer], [email or web address] or the [employer] for snf. cm faxed referral to [facility] [phone]. cm contacted pt's sister, Sindy, re her abiltiy to assist pt at d/c if he was approved for acute, as pt identified Sindy as someone who would be able to assist w/cares. sindy stated she could help "a couple days a week...from noon to four." also, sindy, as dpoa, will contact via to see if pt would quaifiy for increased aid hours/support. rehab liason update w/info.
[2019-09-18 15:49] VITALS: BP 115/68
--- NOTE | 2019-09-18 17:26 | NUR ---
Pt AOx4. forgetful. Pt is up with assist x1 to chair with gb and walker. Pt c/o chronic pain and receiving sched pain meds. Pt is on carb control diet and tolerates well. rehab consulted. Hourly rounding complete will continue to monitor
[2019-09-18 22:30] VITALS: BP 100/52
[2019-09-19 05:38] LABS: INR 2.5; PROTIME 24.4 Seconds (9.20-11.50)
--- NOTE | 2019-09-19 07:40 | NUR ---
PATIENT HAS SLEPT OFF AND ON DURING THE NIGHT. VSS ON 3L 02 VIA NASAL CANNULA. MEDICATIONS GIVEN ORDERED AND CHARTED. ASSESSMENT CHARTED. PATIENT HAS BEEN REPOSITIONED EVERY 2HRS. REINA TO DEPENDENT DRAINAGE WITH YELLOW URINE OUTPUT. IV IN LEFT FOREARM-SL. AKIKO WRAPS TO BILATERAL LEGS-C/D/I. FALL PRECAUTIONS IN PLACE AND HOURLY ROUNDS MADE. WILL CONTINUE WITH PLAN OF CARE AND NURSING TO MONITOR.
[2019-09-19 07:45] VITALS: BP 111/89
[2019-09-19 16:50] VITALS: BP 137/75
--- NOTE | 2019-09-19 18:33 | NUR ---
PT AOX4. PT UP WITH ASSIST X1 WITH GB AND WALKER. PT ON CARB CONTROL DIET AND TOLERATES WELL. PT RECEIVING IV ANTIBIOTICS, AWAITING CULTURES. RECEIVING PO MORPHINE SCHEDULED TO MANAGE CHRONIC PAIN. HOURLY ROUNDING COMPLETE. PROGRESSING TOWARDS GOALS
[2019-09-19 21:00] VITALS: BP 112/64
[2019-09-20 04:07] LABS: ABSOLUTE EOSINOPHILS 0.3 thou/uL (0.0-0.7); ABSOLUTE LYMPHOCYTES 1.7 thou/uL (0.8-5.3); ABSOLUTE MONOCYTES 0.4 thou/uL (0.0-1.2); ABSOLUTE NEUTROPHILS 3.2 thou/uL (1.6-8.1); BASOPHILS 0.5 %; EOSINOPHILS 6.1 %; HEMATOCRIT 27.4 % (42.0-52.0); HEMOGLOBIN 9.4 gm/dL (14.0-18.0); LYMPHOCYTES 30.4 %; MCH 30.1 pg (26.0-34.0); MCHC 34.2 g/dL (28.0-37.0); MCV 88.1 fL (80.0-100.0); MONOCYTES 6.7 %; MPV 7.9 fl. (7.2-11.1); NUCLEATED RBCS 0 /100WBC; PLATELET COUNT* 200 thou/uL (150-400); POLYS 56.3 %; RBC 3.11 mil/uL (4.50-6.00); RDW-CV 15.4 % (10.5-14.5); WBC 5.7 thou/uL (4.0-11.0)
[2019-09-20 04:15] LABS: INR 1.8; PROTIME 17.9 Seconds (9.20-11.50)
[2019-09-20 04:21] LABS: CALCIUM 8.1 mg/dL (8.5-10.1); CREATININE 0.9 mg/dL (0.6-1.3); POTASSIUM 3.5 mmol/L (3.5-5.1)
--- NOTE | 2019-09-20 06:39 | NUR ---
Alert and oriented x 4. He has a history of Parkinsons,some of his meds were late due to not being in the pyxis or in his patient drawer. Vitals were stable. His O2 sat on 2L has been 98-100%. He has slept well.
[2019-09-20 08:00] VITALS: BP 87/56
[2019-09-20] MEDS ORDERED: MS CONTIN15 MG PO (11:14)
[2019-09-20] MEDS ORDERED: JANTOVEN2 MG PO (11:14)
[2019-09-20] MEDS ORDERED: CIPRO500 MG PO (11:14)
[2019-09-20 16:22] VITALS: BP 91/60
--- NOTE | 2019-09-20 16:36 | NUR ---
per Liyah, pt has been accepted at [facility]. liyah is rn radiation this weekend and stated pt can transfer over the weekend need be [phone]. cm sent covid results per request. d/c orders need to be faxed at time of d/c. please provide pt w/the following info: [facility] at [phone]. patient has to reachout to them to update them about the change in his benefit. (this process can take up to 45 days, per cust srvc rep).
[2019-09-20 20:19] VITALS: BP 131/64
[2019-09-21 03:30] LABS: INR 2.3; PROTIME 22.9 Seconds (9.20-11.50)
[2019-09-21 08:34] VITALS: BP 117/74
[2019-09-21 14:41] VITALS: BP 117/74
--- NOTE | 2019-09-21 16:42 | NUR ---
PT DISCHARGED TO [facility] AT 1630 BY JOHN TONG. IV OUT. PAIN CONTROLLED. NAUSEA CONTROLLED. WRAPS ON BILAT LEGS CHANGED. SOFT BM TODAY. ATTEMPTED TO CALL REPORT, NO ANSWER AFTER 20MIN OF BEING ON HOLD. WILL CALL AGAIN. PERSONAL ITEMS SENT WITH PT. PAPER SCRIPT SENT WITH PT.
== END 2019-09-21 16:46 | DRG 57 ==
LOC: M.ERS 13:02 → M.TBA-ER 15:07 → M.ORTHSURG 15:07
PROVIDERS: Emergency Medicine Emergency Medical Services; ADMIT Internal Medicine; ATTEND Internal Medicine
DX: G20 Parkinson's disease (principal); N39.0 Urinary tract infection, site not specified; E44.0 Moderate protein-calorie malnutrition; G89.29 Other chronic pain; M19.90 Unspecified osteoarthritis, unspecified site; D64.9 Anemia, unspecified; I10 Essential (primary) hypertension; E11.40 Type 2 diabetes mellitus with diabetic neuropathy, unspecified; K58.9 Irritable bowel syndrome, unspecified; B96.1 Klebsiella pneumoniae [K. pneumoniae] as the cause of diseases classified elsewhere; B96.89 Other specified bacterial agents as the cause of diseases classified elsewhere; M79.7 Fibromyalgia; M06.9 Rheumatoid arthritis, unspecified; Z88.8 Allergy status to other drugs, medicaments and biological substances; Z90.49 Acquired absence of other specified parts of digestive tract; Z86.718 Personal history of other venous thrombosis and embolism; Z87.891 Personal history of nicotine dependence; Z98.1 Arthrodesis status; Z68.34 Body mass index [BMI] 34.0-34.9, adult; Z79.4 Long term (current) use of insulin; Z79.899 Other long term (current) drug therapy; Z79.01 Long term (current) use of anticoagulants; Z03.818 Encounter for observation for suspected exposure to other biological agents ruled out

== ENCOUNTER 2020-01-16 17:52 | Inpatient (IN) | payer OTHER ==
[~2020-01-16] VITALS: Ht 180.3 cm; Wt 98.4 kg
--- NOTE | ~2020-01-16 | EMS ---
[address] [address] EMS Patient Care Report Name: LAKIA BENTON Room: [address] IN .R.#: [id number] Admission: 01/16/20 Attend Phys: Yoni Martinez Discharge: Date of : 41 Report #: [id number] THIS REPORT FOR: //name// Report Transmitted: 01/17/2020 11:32 EMS Care Summary [facility] [place] Incident [id number] @ 01/16/2020 17:02 Incident Location [address] [place] [address] Patient Lakia Benton Male, 74 Years 1945 Patient Address [address] [place] [address] Patient History Cancer - Other Cancer Condition,Cellulitis,Chronic Obstructive Pulmonary Disease (COPD),Hyperlipidemia,Heart disease, unspecified,Type 2 diabetes mellitus,Parkinson's Disease, Patient Allergies , Chief Complaint None Disposition Transported No Lights/[place] Dispatch Reason Unknown Problem/Person Down Transported To [facility] Narrative [facility] dispatched to residence from and [facility] for med alarm. Arrived on scene with [facility]. Upon arrival, staff stated that they called EMS for patient weakness and shaking. Staff stated that patient began shaking for about 30 minutes about 45 minutes prior to EMS call and provided vitals at that time. [address] [address] EMS Patient Care Report Name: LAKIA BENTON Room: [address] IN [facility]#: [id number] Admission: 01/16/20 Attend Phys: Yoni Martinez Discharge: Date of : 43 Report #: [id number] Staff stated that patient was usually on oxygen and had been out previously in the afternoon and hadn't had a chance to take his medications or eat. Staff stated that they gave patient his medications and patient ate. Residence was noted to be clean and well kept with patient approximately groomed and good hygiene. Upon patient contact, patient was seen laying supine in the bed on 3L oxygen NC; no adventitious breath sounds, no gross bleeding, no obvious life threats. Patient was A&O x4 with a GCS of 15 with no complaints at this time. Patient denied any new pains, chest pain, SOA, dizziness, n/v, SHEN, change in vision, numbness, tingling, cough, fever. Patient stated he felt better after taking his medications and eating. Patient was noted to not be shaking as previously described with quality respirations of good depth and rate. initial vitals as charted. Staff and patient were informed of vitals with staff stating that they didn't think their pulse ox was "working probably". Patient sister was on scene and stated that patient was weak while on their outing and needed to go back to the hospital because he wasn't safe here by himself. Staff stated that they leave at 9pm and could not check on him. Patient and sister stated that patient was released from the hospital yesterday for celliulits; sister stated he "was discharged too soon". Bilateral legs were noted to have severe cellulitis with bilateral foot to knee swollen, red, and hot to touch. Legs were dry with no weeping noted. Patient stated he wanted to go to the hospital so "my sister doesn't worry about me being here by myself". Patient stated that he was discharged at night last from [facility]. Per patient, patient stated he was not leaving until the morning when staff was available to "take care of me". Patient stated he continued to tell the hospital that he wasn't leaving until the morning because "no one would be there" and had to be removed and escorted off the premise by security. Delay on scene for patient education. EMS asked patient what the goal/reason for transport to the hospital would be as patient denied any complaint. Patient stated "to admit me so I'm not here by myself at night" EMS questioned patient what his plan would be if the hospital did not admit him and discharged him in the night like last night at a time where staff was no longer available for him. Patient stated "Well I will cross that bridge when I get there if it happens". EMS discussed with patient terminal carman concerns that current living arrangement may not be the most appropriate for patient if staff leaves at 9pm and patient or family does not feel that he can be alone due to inability to take care of himself, even with a life alert button on hand for patient. Patient stated he had been to rehab before and it didn't "do anything" and stated he refused to move to assisted living but would not provide a reason why. Patient restated he wanted to go to the hospital so "my sister doesn't worry about me and so I have someone there to take care of me". EMS asked patient what he felt he needed assistance with EMS could provide the best care and resources for patient. Patient was unable to state how he was unable to take care of himself. Patient sister stated that patient was too weak to care for himself. Cot was placed in bedroom next to bed. Patient was assisted to transfer from supine to sit to stand and assisted to pivot to sit to the cot. Once seated, seatbelts x4 were applied for patient safety. Patient requested bag of belongings that was placed on the back of the cot. Patient was [facility] [address] [place] [address] EMS Patient Care Report Name: LAKIA BENTON Room: [facility]- ADM IN M.R.#: [id number] Admission: 01/16/20 Attend Phys: Yoni Martinez Discharge: Date of : 41 Report #: [id number] placed on 3L oxygen [place] EMS portable supply. Cot was moved to the unit where it was loaded and locked. In unit, patient was placed on 3L oxygen NC main tank supply. Physical was unremarkable. Patient continued to have no new complaints and restated that he felt better than he did prior to EMS call. Patient medical history was reviewed with patient unable to recall medications. Transport initated. En route, patient remained on 3L oxygen NC as is patient baseline. Patient vitals were monitored as charted. Patient had no change of condition en route. Patient denied onset of new symptoms. Patient comfort was attended to with position and temperture changes as requested. At destination, patient was removed from the monitor and remained on 3L oxygen NC as patient baseline. Cot was unlocked, unloaded, and moved to the ER. In ER, patient was placed on 3L oxygen NC hospital supply and transferred from EMS cot to hospital bed. Patient belonings were placed on chair with patient acknowledgement. Delay at destination for a nurse. Once available, verbal report was given. Due to patient weakness, patient was unable to sign EMS consent to transport and treat; recieving facility signed on behalf of patient. Transfer of care complete. *Transfer of care signature was not obtained prior to clearing facility due to oversight. [facility] had not left parking lot when error was discovered and EMS returned to obtain*. Initial Vitals @17:16SpO2: 100, @17:32SpO2: 100, @PTASpO2: 74, @17:16P: 77,R: 18,BP: 100/51, @17:32P: 75,R: 18,BP: 106/49, @PTAP: 174, @17:16GCS: 15, @17:32GCS: 15, @BUSINESS QUALITY ASSURANCE ANALYST @17:13 @17:19Glucose: 100, Assessments @17:13MENTAL:SKIN:HEENT:LUNG SOUNDS:ABDOMEN:PELVIS//GI:EXTREMITIES:PULSE:NEURO: Impression Malaise Procedures @PTAOther - Medication - 3.000 Liters per Minute (l/min [fluid]) - Nasal CannulaResponse: Unchanged@17:25Trauma Alert Timeline BUSINESS QUALITY ASSURANCE ANALYST,Other - Medication - 3.000 Liters per Minute (l/min [[place]]) [place] [address] EMS Patient Care Report Name: LAKIA BENTON Room: [address] ADM IN .R.#: [id number] Admission: 01/16/20 Attend Phys: Yoni Martinez Discharge: Date of : 41 Report #: [id number] Cannula,Response: Unchanged BUSINESS QUALITY ASSURANCE ANALYST,BP: / M,PULSE: ,RR: R,SPO2: 74 Ox,ETCO2: ,BG: ,PAIN: ,GCS: , BUSINESS QUALITY ASSURANCE ANALYST,BP: / M,PULSE: 174,RR: R,SPO2: Ox,ETCO2: ,BG: ,PAIN: ,GCS: , BUSINESS QUALITY ASSURANCE ANALYST,BP: / M,PULSE: ,RR: R,SPO2: Ox,ETCO2: ,BG: ,PAIN: ,GCS: , 17:00,Call Received 17:00,Dispatch Notified 17:00,Psap Call 17:02,Dispatched 17:02,En Route 17:09,On Scene 17:13,At Patient 17:13,BP: / M,PULSE: ,RR: R,SPO2: Ox,ETCO2: ,BG: ,PAIN: ,GCS: , 17:16,BP: / M,PULSE: ,RR: R,SPO2: 100 Ox,ETCO2: ,BG: ,PAIN: ,GCS: , 17:16,BP: 100/51 M,PULSE: 77,RR: 18 R,SPO2: Ox,ETCO2: ,BG: ,PAIN: ,GCS: , 17:16,BP: / M,PULSE: ,RR: R,SPO2: Ox,ETCO2: ,BG: ,PAIN: ,GCS: 15, 17:19,BP: / M,PULSE: ,RR: R,SPO2: Ox,ETCO2: ,B,PAIN: ,GCS: , 17:25,Trauma Alert, 17:25,Depart Scene 17:32,BP: / M,PULSE: ,RR: R,SPO2: 100 Ox,ETCO2: ,BG: ,PAIN: ,GCS: , 17:32,BP: 106/49 M,PULSE: 75,RR: 18 R,SPO2: Ox,ETCO2: ,BG: ,PAIN: ,GCS: , 17:32,BP: / M,PULSE: ,RR: R,SPO2: Ox,ETCO2: ,BG: ,PAIN: ,GCS: 15, 17:39,At Destination 17:55,Call Closed Disclaimer v1.1 Copyright 2020 [employer] This EMS Care Summary contains data elements from the applicable legal record (which may be displayed differently). It is designed to provide pertinent information for the following purposes: continuity of care, clinical quality, and state data reporting. The complete legal record is available to ED staff and administrators of the receiving hospital in [facility]'s Patient Tracker. All data is provided "as is."
[~2020-01-16 17:52] MED LIST changes: +CIPRO500 MG PO; +HUMALOG JU100 UNIT/1 SUBQ; +LANTUSSOLASTAR SUBQ
[2020-01-16 18:05] VITALS: BP 101/51
[2020-01-16] MEDS ORDERED: CALCIUM CARBON500 MG PO (18:17)
[2020-01-16] MEDS ORDERED: COMTAN200 MG PO (18:18)
[2020-01-16] MEDS ORDERED: CLEOCIN HCL150 MG PO (18:18)
[2020-01-16] MEDS ORDERED: NEURONTIN 300M300 M2 PO (18:19)
[2020-01-16] MEDS ORDERED: FOLIC ACID1 MG PO (18:19)
[2020-01-16] MEDS ORDERED: FLUNISOLIDE25 ML NASAL (18:19)
[2020-01-16] MEDS ORDERED: NOVOLOG FL100 UNIT/M SUBQ (18:19)
[2020-01-16] MEDS ORDERED: LEVEMIR FL100 UNIT/2 SUBQ (18:20)
[2020-01-16] MEDS ORDERED: PREVACID30 MG PO (18:20)
[2020-01-16] MEDS ORDERED: CVS SENNA PLUS1 EACH PO (18:21)
[2020-01-16] MEDS ORDERED: MIRALAX119 GM PO (18:21)
[2020-01-16] MEDS ORDERED: MAGNESIUM CITR100 GM PO (18:21)
[2020-01-16] MEDS ORDERED: SIMVASTATIN80 MG PO (18:22)
[2020-01-16 18:52] LABS: ABSOLUTE BASOPHILS 0.1 thou/uL (0.0-0.2); ABSOLUTE EOSINOPHILS 0.2 thou/uL (0.0-0.7); ABSOLUTE LYMPHOCYTES 1.8 thou/uL (0.8-5.3); ABSOLUTE MONOCYTES 0.7 thou/uL (0.0-1.2); BASOPHILS 0.8 %; EOSINOPHILS 1.6 %; HEMATOCRIT 31.8 % (42.0-52.0); HEMOGLOBIN 10.5 gm/dL (14.0-18.0); LYMPHOCYTES 16.6 %; MCH 30.2 pg (26.0-34.0); MCHC 33.2 g/dL (28.0-37.0); MCV 91.2 fL (80.0-100.0); MONOCYTES 6.2 %; MPV 7.6 fl. (7.2-11.1); NUCLEATED RBCS 0 /100WBC; PLATELET COUNT* 293 thou/uL (150-400); POLYS 74.8 %; RBC 3.48 mil/uL (4.50-6.00); RDW-CV 16.6 % (10.5-14.5); WBC 10.8 thou/uL (4.0-11.0)
[2020-01-16 18:59] LABS: CALCIUM 8.3 mg/dL (8.5-10.1); CREATININE 2.2 mg/dL (0.6-1.3); POTASSIUM 4.1 mmol/L (3.5-5.1)
[2020-01-16 19:02] LABS: INR 1.4; PROTIME 14.4 Seconds (9.20-11.50)
[2020-01-16 19:03] LABS: ALBUMIN 2.9 g/dL (3.4-5.0); TOTAL BILIRUBIN 0.6 mg/dL (<0.1-1.0)
[2020-01-16 20:58] LABS: ICTOTEST (BILI CONFIRMATORY) Negative (Negative); URINE BILIRUBIN 1+ (Negative); URINE BLOOD NEGATIVE (Negative); URINE CLARITY CLEAR; URINE COLOR YELLOW; URINE GLUCOSE-RANDOM NEGATIVE (Negative); URINE KETONES NEGATIVE (Negative); URINE LEUKOCYTES NEGATIVE (Negative); URINE NITRITE NEGATIVE (Negative); URINE PROTEIN TRACE (Negative); URINE SPECIFIC GRAVITY >= 1.030 (1.005-1.030); URINE UROBILINOGEN 0.2 E.U./dl (0.2-1.0)
[2020-01-16 23:00] VITALS: BP 91/39
[2020-01-16 23:02] VITALS: BP 85/38
[2020-01-16 23:20] VITALS: BP 71/37; BP 75/36
[2020-01-17] VITALS (7 sets, daily range): BP systolic 81–95; BP diastolic 30–60
[2020-01-17 09:43] LABS: CALCIUM 7.3 mg/dL (8.5-10.1); CREATININE 1.6 mg/dL (0.6-1.3)
[2020-01-17 09:46] LABS: MAGNESIUM 1.9 mg/dL (1.8-2.4); PHOSPHORUS* 5.2 mg/dL (2.5-4.9)
[2020-01-17 09:51] LABS: INR 1.5; PROTIME 15.9 Seconds (9.20-11.50)
--- NOTE | 2020-01-17 10:20 | EKG ---
[place] [address] ELECTROCARDIOGRAM REPORT Name: LAKIA BENTON Room: [address] ADM IN .R.#: [id number] Admission: 01/16/20 Attend Phys: Shereen Mancuso Discharge: Date of : 41 Date of Service: 01/16/20 1806 Report #: [id number] THIS REPORT FOR: //name// [facility] ED Test Date: 2020-01-16 Test Time: 18:06:21 Pat Name: LAKIA BENTON Department: Room: [facility] Gender: M Offshoring Manager: [facility] [place] 1945 Requested By: Monet Abbott Order Number: [id number] MD: Abdifatah Dewitt Measurements Intervals [place] Rate: 78 P: 18 AK: 208 QRS: 54 QRSD: 133 T: 29 QT: 422 QTc: 481 Interpretive Statements Sinus rhythm Right bundle branch block Compared to ECG 09/16/2019 13:09:21 No significant changes Electronically Signed On 01-17-2020 10:19:48 RECORDS AND TAPE RECORDINGS ENGINEER by Abdifatah Dewitt [email or web address] <ELECTRONICALLY SIGNED> By: Abdifatah Dewitt MD, FACC 01/17/20 1019 1806 1806 Abdifatah Dewitt MD, [facility] /EPI
[2020-01-17] MEDS ORDERED: MORPHINE SULFAT15 MG PO (13:16)
[2020-01-18 05:10] LABS: HEMATOCRIT 25.9 % (42.0-52.0); MCH 29.8 pg (26.0-34.0); MCHC 32.8 g/dL (28.0-37.0); MCV 90.7 fL (80.0-100.0); MPV 8.1 fl. (7.2-11.1); RBC 2.86 mil/uL (4.50-6.00); RDW-CV 16.7 % (10.5-14.5)
[2020-01-18 05:20] LABS: INR 1.4; PROTIME 14.6 Seconds (9.20-11.50)
[2020-01-18 05:29] LABS: ALBUMIN 2.2 g/dL (3.4-5.0); CALCIUM 7.6 mg/dL (8.5-10.1); CREATININE 0.9 mg/dL (0.6-1.3); MAGNESIUM 2.1 mg/dL (1.8-2.4); POTASSIUM 4.2 mmol/L (3.5-5.1); TOTAL BILIRUBIN 0.5 mg/dL (<0.1-1.0); TOTAL PROTEIN 5.7 g/dL (6.4-8.2)
[2020-01-18 05:43] LABS: HEMOGLOBIN 8.5 gm/dL (14.0-18.0)
[2020-01-18 07:30] VITALS: BP 99/50
[2020-01-18 16:40] VITALS: BP 115/56
[2020-01-18 20:25] VITALS: BP 130/59
[2020-01-19 04:56] LABS: INR 1.8; PROTIME 18.7 Seconds (9.20-11.50)
[2020-01-19 05:43] LABS: CALCIUM 8.2 mg/dL (8.5-10.1); CREATININE 0.6 mg/dL (0.6-1.3)
[2020-01-19 05:45] LABS: POTASSIUM 5.3 mmol/L (3.5-5.1)
[2020-01-19 08:00] VITALS: BP 123/67
[2020-01-19 17:03] VITALS: BP 120/57
[2020-01-19 20:20] VITALS: BP 151/71
[2020-01-20 05:28] LABS: PROTIME 35.6 Seconds (9.20-11.50)
[2020-01-20 05:41] LABS: INR 3.6
[2020-01-20 05:45] LABS: ALBUMIN 2.2 g/dL (3.4-5.0); CALCIUM 7.5 mg/dL (8.5-10.1); CREATININE 0.6 mg/dL (0.6-1.3); POTASSIUM 4.3 mmol/L (3.5-5.1); TOTAL BILIRUBIN 0.2 mg/dL (<0.1-1.0); TOTAL PROTEIN 5.5 g/dL (6.4-8.2)
[2020-01-20 08:00] VITALS: BP 123/66
[2020-01-20 16:07] LABS: INR 3.9; PROTIME 38.3 Seconds (9.20-11.50)
[2020-01-20 17:08] VITALS: BP 141/68
[2020-01-20 22:02] VITALS: BP 138/60
[2020-01-21 05:56] LABS: ABSOLUTE EOSINOPHILS 0.1 thou/uL (0.0-0.7); ABSOLUTE LYMPHOCYTES 1.4 thou/uL (0.8-5.3); ABSOLUTE MONOCYTES 0.4 thou/uL (0.0-1.2); ABSOLUTE NEUTROPHILS 3.4 thou/uL (1.6-8.1); BASOPHILS 0.7 %; EOSINOPHILS 2.7 %; HEMATOCRIT 26.1 % (42.0-52.0); HEMOGLOBIN 8.7 gm/dL (14.0-18.0); LYMPHOCYTES 25.8 %; MCH 30.5 pg (26.0-34.0); MCHC 33.2 g/dL (28.0-37.0); MONOCYTES 8.1 %; MPV 7.7 fl. (7.2-11.1); NUCLEATED RBCS 0 /100WBC; PLATELET COUNT* 226 thou/uL (150-400); POLYS 62.7 %; RBC 2.84 mil/uL (4.50-6.00); RDW-CV 16.6 % (10.5-14.5); WBC 5.4 thou/uL (4.0-11.0)
[2020-01-21 06:04] LABS: PROTIME 23.2 Seconds (9.20-11.50)
[2020-01-21 06:11] LABS: INR 2.3
[2020-01-21 06:27] LABS: ALBUMIN 2.1 g/dL (3.4-5.0); CREATININE 0.7 mg/dL (0.6-1.3); POTASSIUM 4.2 mmol/L (3.5-5.1); TOTAL BILIRUBIN 0.2 mg/dL (<0.1-1.0); TOTAL PROTEIN 5.2 g/dL (6.4-8.2)
[2020-01-21 08:30] VITALS: BP 147/70
[2020-01-21 16:00] VITALS: BP 144/64
[2020-01-22 06:27] LABS: INR 1.9; PROTIME 19.2 Seconds (9.20-11.50)
[2020-01-22 08:55] VITALS: BP 114/55
[2020-01-22 12:17] VITALS: BP 114/55
[2020-01-22] MEDS ORDERED: VANCOMYCIN HCL250 MG PO (12:47)
[2020-01-22 16:24] VITALS: BP 114/55
[2020-01-22 20:30] VITALS: BP 119/48
[2020-01-23 05:56] LABS: INR 1.7; PROTIME 17.2 Seconds (9.20-11.50)
[2020-01-23 08:05] VITALS: BP 152/71
[2020-01-23 08:27] VITALS: BP 114/55
[2020-01-23 10:13] VITALS: BP 114/55
== END 2020-01-23 10:35 | disposition home health service (06) | DRG 371 ==
LOC: M.ERS 17:52 → M.TBA-ER 19:32 → M.3W 19:32
PROVIDERS: Internal Medicine; Physician Assistant; ADMIT Internal Medicine; ATTEND Internal Medicine
DX: A04.72 Enterocolitis due to Clostridium difficile, not specified as recurrent (principal); N17.0 Acute kidney failure with tubular necrosis; E43 Unspecified severe protein-calorie malnutrition; R53.2 Functional quadriplegia; E87.2 Acidosis; D68.59 Other primary thrombophilia; Z20.828 Contact with and (suspected) exposure to other viral communicable diseases; I10 Essential (primary) hypertension; M06.9 Rheumatoid arthritis, unspecified; D64.9 Anemia, unspecified; G89.29 Other chronic pain; M54.9 Dorsalgia, unspecified; I95.9 Hypotension, unspecified; E86.9 Volume depletion, unspecified; I87.2 Venous insufficiency (chronic) (peripheral); M19.90 Unspecified osteoarthritis, unspecified site; E11.40 Type 2 diabetes mellitus with diabetic neuropathy, unspecified; K58.9 Irritable bowel syndrome, unspecified; E66.9 Obesity, unspecified; G20 Parkinson's disease; Z79.891 Long term (current) use of opiate analgesic; Z68.30 Body mass index [BMI] 30.0-30.9, adult; Z89.422 Acquired absence of other left toe(s); Z88.8 Allergy status to other drugs, medicaments and biological substances; Z86.718 Personal history of other venous thrombosis and embolism

== ENCOUNTER 2020-01-29 20:29 | Emergency (ER) | payer OTHER ==
[~2020-01-29] VITALS: Ht 177.8 cm; Wt 103.0 kg
--- NOTE | ~2020-01-29 | EMS ---
[facility] [address] [place] [address] EMS Patient Care Report Name: LAKIA BENTON [id number] Admission: 01/29/20 Attend Phys: Discharge: 01/29/20 Date of : 41 Report #: [id number] THIS REPORT FOR: //name// Report Transmitted: 01/30/2020 01:02 EMS Care Summary [facility] [place] Incident [id number] @ 01/29/2020 19:50 Incident Location [address] [place], [place] [id number] Patient LAKIA BENTON Male, 74 Years 1945 Patient Address [address] [place] [address] Patient History Cancer - Other Cancer Condition,Cellulitis,Chronic Obstructive Pulmonary Disease (COPD),Hyperlipidemia,Heart disease, unspecified,Type 2 diabetes mellitus,Parkinson's Disease, Patient Allergies , Chief Complaint Urination related symptom Disposition Transported No Lights/[place] Dispatch Reason Sick Person Transported To [facility] Narrative [facility] 308 DISPATCHED TO STATED LOCATION FOR MALE PT, UTI. ON INITITAL CONTACT WITH THE PT, HE WAS SEATED IN A WHEELCHAIR JUST INSIDE THE RESIDENCE. HE ADVISED US OF HIS RECENT MEDICAL HISTORY (CELLULITIS, C. DIFF) AND THAT HE BEGAN EXPERIENCING UTI SYMPTOMS EARLIER IN THE DAY. PT WAS ASSISTED ONTO THE [address] [address] EMS Patient Care Report Name: LAKIA BENTON Room: [facility]#: [id number] Admission: 01/29/20 Attend Phys: Discharge: 01/29/20 Date of : 41 Report #: [id number] STRETCHER, SECURED, AND MOVED TO THE AMBULANCE FOR TRANSPORT. VITAL SIGNS NOTED. I BEGAN LOOKING FOR AN IV SITE, PT ADVISED THAT HE OFTEN REQUIRES IV PLACEMENT USING ULTRASOUND GUIDANCE. PT RESTED COMFORTABLY DURING TRANSPORT, WITH NO CHANGES IN OVERALL CONDITION WHILE EN ROUTE. IN PERSON HANDOFF REPORT GIVEN TO RECEIVING NURSE INDICATED. PT CARE TRANSFERRED WITHOUT INCIDENT. UNIT IN SERVICE. END OF REPORT LEISA JAMIN [id number] Initial Vitals @19:59Pain: 09/15, @20:26Pain: 09/15, @20:08SpO2: 90, @20:19SpO2: 92, @20:22SpO2: 94, @20:08P: 89,R: 20,BP: 146/93, @20:19P: 77,R: 18,BP: 138/52, @20:08GCS: 15, @20:19GCS: 15, Assessments @19:59MENTAL:SKIN:HEENT:LUNG SOUNDS:ABDOMEN:PELVIS//GI:EXTREMITIES:PULSE:NEURO: Impression Urinary Tract Infection (UTI) Timeline 19:50,Call Received 19:50,Dispatch Notified 19:50,Psap Call 19:50,Dispatched 19:50,En Route 19:54,On Scene 19:59,At Patient 19:59,BP: / M,PULSE: ,RR: R,SPO2: Ox,ETCO2: ,BG: ,PAIN: 8,GCS: , 20:08,BP: / M,PULSE: ,RR: R,SPO2: 90 Ox,ETCO2: ,BG: ,PAIN: ,GCS: , 20:08,BP: 146/93 M,PULSE: 89,RR: 20 R,SPO2: Ox,ETCO2: ,BG: ,PAIN: ,GCS: , 20:08,BP: / M,PULSE: ,RR: R,SPO2: Ox,ETCO2: ,BG: ,PAIN: ,GCS: 15, 20:12,Depart Scene 20:19,BP: / M,PULSE: ,RR: R,SPO2: 92 Ox,ETCO2: ,BG: ,PAIN: ,GCS: , 20:19,BP: 138/52 M,PULSE: 77,RR: 18 R,SPO2: Ox,ETCO2: ,BG: ,PAIN: ,GCS: , 20:19,BP: / M,PULSE: ,RR: R,SPO2: Ox,ETCO2: ,BG: ,PAIN: ,GCS: 15, 20:22,BP: / M,PULSE: ,RR: R,SPO2: 94 Ox,ETCO2: ,BG: ,PAIN: ,GCS: , 20:24,At Destination 20:26,BP: / M,PULSE: ,RR: R,SPO2: Ox,ETCO2: ,BG: ,PAIN: 8,GCS: , 20:41,[place] [address] EMS Patient Care Report Name: LAKIA BENTON Room: [facility]#: [id number] Admission: 01/29/20 Attend Phys: Discharge: 01/29/20 Date of : 41 Report #: [id number] Disclaimer v1.1 Copyright 2020 [employer] This EMS Care Summary contains data elements from the applicable legal record (which may be displayed differently). It is designed to provide pertinent information for the following purposes: continuity of care, clinical quality, and state data reporting. The complete legal record is available to ED staff and administrators of the receiving hospital in [facility]'s Patient Tracker. All data is provided "as is."
[~2020-01-29 20:29] MED LIST changes: +CALCIUM CARBON500 MG PO; +CLEOCIN HCL150 MG PO; +COMTAN200 MG PO; +CVS SENNA PLUS1 EACH PO; +FLUNISOLIDE25 ML NASAL; +MAGNESIUM CITR100 GM PO; +MIRALAX119 GM PO; +MORPHINE SULFAT15 MG PO; +NEURONTIN 300M300 M2 PO; +NOVOLOG FL100 UNIT/M SUBQ; +PREVACID30 MG PO; +VANCOMYCIN HCL250 MG PO
[2020-01-29 20:57] LABS: URINE BILIRUBIN NEGATIVE (Negative); URINE BLOOD TRACE (Negative); URINE CLARITY CLOUDY; URINE COLOR DARK YELLOW; URINE GLUCOSE-RANDOM TRACE (Negative); URINE KETONES NEGATIVE (Negative); URINE PROTEIN TRACE (Negative)
[2020-01-29 21:00] LABS: URINE LEUKOCYTES-REFLEX 2+ (Negative); URINE NITRITE-REFLEX POSITIVE (Negative)
[2020-01-29 21:04] LABS: URINE WBC-REFLEX >25 Many /HPF (0-5)
[2020-01-29 21:05] LABS: HYALINE CASTS 0-3 Few /LPF (None Seen); WBC CLUMPS Few (None Seen)
[2020-01-29 21:06] LABS: CRYSTALS None Seen /LPF (None Seen); MUCUS None Seen strn/LPF (None Seen); SQUAMOUS NONE SEEN /LPF (0-3); URINE RBC 3-10 Few /HPF (0-2)
[2020-01-29] MEDS ORDERED: PHENAZOPYRIDIN200 M2 PO (21:06)
[2020-01-29] MEDS ORDERED: MACROBID 100 M100 M2 PO (21:06)
[2020-01-29 22:43] VITALS: BP 127/79
== END 2020-01-29 22:44 | disposition home or self-care (01) ==
LOC: M.ERS 20:29
PROVIDERS: Nurse Practitioner Family
DX: N39.0 Urinary tract infection, site not specified (principal); M06.9 Rheumatoid arthritis, unspecified; G89.29 Other chronic pain; Z88.8 Allergy status to other drugs, medicaments and biological substances

== ENCOUNTER → 2020-02-11 | Outpatient (CLI) | payer OTHER ==
[~2020-02-11] MED LIST changes: +MACROBID 100 M100 M2 PO; +PHENAZOPYRIDIN200 M2 PO
== END ==
LOC: M.WC 01-28 10:00
PROVIDERS: ATTEND Emergency Medicine Undersea and Hyperbaric Medicine
DX: E11.622 Type 2 diabetes mellitus with other skin ulcer (principal); L89.153 Pressure ulcer of sacral region, stage 3; L98.492 Non-pressure chronic ulcer of skin of other sites with fat layer exposed; L97.812 Non-pressure chronic ulcer of other part of right lower leg with fat layer exposed; L97.822 Non-pressure chronic ulcer of other part of left lower leg with fat layer exposed; I89.0 Lymphedema, not elsewhere classified; I11.0 Hypertensive heart disease with heart failure; I50.22 Chronic systolic (congestive) heart failure; G20 Parkinson's disease; M06.9 Rheumatoid arthritis, unspecified; Z86.718 Personal history of other venous thrombosis and embolism; Z87.891 Personal history of nicotine dependence; Z79.4 Long term (current) use of insulin; Z79.01 Long term (current) use of anticoagulants

== ENCOUNTER → 2020-02-18 | Outpatient (CLI) | payer OTHER | LOC: M.WC 09:53 | PROVIDERS: ATTEND Emergency Medicine Undersea and Hyperbaric Medicine | DX: E11.622 Type 2 diabetes mellitus with other skin ulcer (principal); L89.153 Pressure ulcer of sacral region, stage 3; L98.492 Non-pressure chronic ulcer of skin of other sites with fat layer exposed; L97.812 Non-pressure chronic ulcer of other part of right lower leg with fat layer exposed; L97.822 Non-pressure chronic ulcer of other part of left lower leg with fat layer exposed; I89.0 Lymphedema, not elsewhere classified; I11.0 Hypertensive heart disease with heart failure; I50.22 Chronic systolic (congestive) heart failure; G20 Parkinson's disease; M06.9 Rheumatoid arthritis, unspecified; Z86.718 Personal history of other venous thrombosis and embolism; Z87.891 Personal history of nicotine dependence ==

== ENCOUNTER → 2020-02-25 | Outpatient (CLI) | payer OTHER | LOC: M.WC 13:30 | PROVIDERS: ATTEND Emergency Medicine Undersea and Hyperbaric Medicine | DX: E11.622 Type 2 diabetes mellitus with other skin ulcer (principal); L97.812 Non-pressure chronic ulcer of other part of right lower leg with fat layer exposed; L97.822 Non-pressure chronic ulcer of other part of left lower leg with fat layer exposed; L89.153 Pressure ulcer of sacral region, stage 3; L98.492 Non-pressure chronic ulcer of skin of other sites with fat layer exposed; I89.0 Lymphedema, not elsewhere classified; I11.0 Hypertensive heart disease with heart failure; I50.9 Heart failure, unspecified; G20 Parkinson's disease; M06.9 Rheumatoid arthritis, unspecified; Z86.718 Personal history of other venous thrombosis and embolism; Z87.891 Personal history of nicotine dependence ==

== ENCOUNTER → 2020-03-03 | Outpatient (CLI) | payer OTHER | LOC: M.WC 13:59 | PROVIDERS: ATTEND Emergency Medicine Undersea and Hyperbaric Medicine | DX: E11.622 Type 2 diabetes mellitus with other skin ulcer (principal); L97.812 Non-pressure chronic ulcer of other part of right lower leg with fat layer exposed; L97.822 Non-pressure chronic ulcer of other part of left lower leg with fat layer exposed; L89.153 Pressure ulcer of sacral region, stage 3; L98.492 Non-pressure chronic ulcer of skin of other sites with fat layer exposed; I89.0 Lymphedema, not elsewhere classified; I11.0 Hypertensive heart disease with heart failure; I50.22 Chronic systolic (congestive) heart failure; G20 Parkinson's disease; M06.9 Rheumatoid arthritis, unspecified; Z86.718 Personal history of other venous thrombosis and embolism; Z87.891 Personal history of nicotine dependence ==

== ENCOUNTER 2020-03-06 20:58 | Inpatient (IN) | payer OTHER ==
[~2020-03-06] VITALS: Ht 180.3 cm; Wt 107.2 kg
--- NOTE | ~2020-03-06 | EMS ---
[facility] [address] [place] [address] EMS Patient Care Report Name: LAKIA FISHER Room: [address] Daniela#: [id number] Admission: 03/06/20 Attend Phys: Zbigniew Richard MD Discharge: Date of : 41 Report #: [id number] THIS REPORT FOR: //name// Report Transmitted: 03/07/2020 04:34 EMS Care Summary [facility] Olivia MD Incident [id number] @ 03/06/2020 20:03 Incident Location [address] [place] [address] Patient Lakia Fisher Male, 74 Years 1945 Patient Address [address] [place] [address] Patient History Cancer - Other Cancer Condition,Cellulitis,Chronic Obstructive Pulmonary Disease (COPD),Hyperlipidemia,Heart disease, unspecified,Type 2 diabetes mellitus,Parkinson's Disease,Congestive Heart Failure (CHF),Presence of coronary angioplasty implant and graft,Myocardial Infarction (ME),Primary osteoarthritis of other joints, Patient Allergies , Patient Medications Coumadin, Morphine / Naltrexone, Chief Complaint Weakness Disposition Transported No Lights/[place] Dispatch Reason Diabetic Problem Transported To [facility] [address] [place] [address] EMS Patient Care Report Name: LAKIA FISHER Room: [address] Daniela#: [id number] Admission: 03/06/20 Attend Phys: Zbigniew Richard MD Discharge: Date of : 41 Report #: [id number] [facility] dispatched to an independent living facility on hypoglycemia. [place] [employer] is on scene prior to arrival, obtaining a blood sugar. Blood sugar shows 32. Pt is seated in his electric wheelchair at a dining table. Pt is not completely alert, very lethargic but can answer some questions. Airway is clear and self-maintainable. Breathing is adequate. Skin is warm, pale, dry. Pt reports that he is very tired and cold. Pt is given one tube of oral glucose to raise blood sugar. Blood sugar reads 48. Vascular access is attempted unsuccessfully. Pt eats half of a peanut butter sandwich and drinks a bottle of powerade. Blood sugar reads 292. Pt is A/Ox4. Pt is very lethargic and slow to answer, reporting that he feels weak, tired, and cold. Pt reports that he does not normally feel this way. Pt agrees to be transported. Pt's electrical chair is wheeled to cot. Pt stands with assistance and pivots to sit on cot. Pt is secured to cot semi-haro's. Cot to unit. Transport to [facility]. See "Objective" for physical exam findings. See "Tr & Rx" for treatments and procedures. Pt continues to slouch to his left side and keeps his eyes closed for duration of transport. Pt denies any pain except for his chronic back pain. Pt denies nausea or dizziness. On arrival to [place], pt is unloaded from unit on cot, rolled into ED. Pt is transferred from cot to bed without incident. Report to nurse. Signatures and facesheet obtained. End pt contact. Ciara Jiménez; EMT-P. Initial Vitals @20:41SpO2: 96, @20:44SpO2: 99, @20:49SpO2: 94, @20:51SpO2: 99, @20:49 @20:50 @20:40P: 54,R: 14,BP: 125/58, @20:51P: 53,R: 14,BP: 117/56, @PTABP: 120/90, @20:40GCS: 14, @20:51GCS: 14, @PTAGCS: 14, @20:11 @20:44 @20:15Glucose: 32, @20:35Glucose: 292, @20:24Glucose: 48, Assessments @20:11MENTAL:SKIN:HEENT:LUNG SOUNDS:ABDOMEN:PELVIS//GI:EXTREMITIES:PULSE:NEURO: Impression [place] [address] EMS Patient Care Report Name: LAKIA FISHER Room: [address] M.R.#: [id number] Admission: 03/06/20 Attend Phys: Zbigniew Richard MD Discharge: Date of : 41 Report #: [id number] Procedures @20:16Other - Medication - 25.000 Grams (gms) - OralResponse: Improved@20:25 cc () Site: Hand-LeftResponse: UnchangedFailed@20:4912-Lead ECGResponse: UnchangedSucceeded@20:5012-Lead ECGResponse: UnchangedSucceeded Timeline LEGAL INSTRUCTOR,BP: 120/90 M,PULSE: ,RR: R,SPO2: Ox,ETCO2: ,BG: ,PAIN: ,GCS: , LEGAL INSTRUCTOR,BP: / M,PULSE: ,RR: R,SPO2: Ox,ETCO2: ,BG: ,PAIN: ,GCS: 14, 20:03,Call Received 20:03,Dispatch Notified 20:03,Psap Call 20:03,Dispatched 20:04,En Route 20:10,On Scene 20:11,At Patient 20:11,BP: / M,PULSE: ,RR: R,SPO2: Ox,ETCO2: ,BG: ,PAIN: ,GCS: , 20:15,BP: / M,PULSE: ,RR: R,SPO2: Ox,ETCO2: ,B,PAIN: ,GCS: , 20:16,Other - Medication - 25.000 Grams (gms) - Oral,Response: Improved 20:24,BP: / M,PULSE: ,RR: R,SPO2: Ox,ETCO2: ,B,PAIN: ,GCS: , 20:25, cc Site: Hand-Left,Response: UnchangedFailed, 20:35,BP: / M,PULSE: ,RR: R,SPO2: Ox,ETCO2: ,B,PAIN: ,GCS: , 20:40,BP: 125/58 M,PULSE: 54,RR: 14 R,SPO2: Ox,ETCO2: ,BG: ,PAIN: ,GCS: , 20:40,BP: / M,PULSE: ,RR: R,SPO2: Ox,ETCO2: ,BG: ,PAIN: ,GCS: 14, 20:41,BP: / M,PULSE: ,RR: R,SPO2: 96 Ox,ETCO2: ,BG: ,PAIN: ,GCS: , 20:44,BP: / M,PULSE: ,RR: R,SPO2: 99 Ox,ETCO2: ,BG: ,PAIN: ,GCS: , 20:44,Depart Scene 20:44,BP: / M,PULSE: ,RR: R,SPO2: Ox,ETCO2: ,BG: ,PAIN: ,GCS: , 20:49,12-Lead ECG,Response: UnchangedSucceeded, 20:49,BP: / M,PULSE: ,RR: R,SPO2: 94 Ox,ETCO2: ,BG: ,PAIN: ,GCS: , 20:49,BP: / M,PULSE: ,RR: R,SPO2: Ox,ETCO2: ,BG: ,PAIN: ,GCS: , 20:50,12-Lead ECG,Response: UnchangedSucceeded, 20:50,BP: / M,PULSE: ,RR: R,SPO2: Ox,ETCO2: ,BG: ,PAIN: ,GCS: , 20:51,BP: / M,PULSE: ,RR: R,SPO2: 99 Ox,ETCO2: ,BG: ,PAIN: ,GCS: , 20:51,BP: 117/56 M,PULSE: 53,RR: 14 R,SPO2: Ox,ETCO2: ,BG: ,PAIN: ,GCS: , 20:51,BP: / M,PULSE: ,RR: R,SPO2: Ox,ETCO2: ,BG: ,PAIN: ,GCS: 14, 21:00,At Destination 21:10,Call Closed Disclaimer v1.1 Copyright 2020 [employer] This EMS Care Summary contains data elements from the applicable legal record (which may be displayed differently). It is designed to provide pertinent information for the following purposes: continuity of care, clinical quality, and state data reporting. The complete legal record is available to ED staff and administrators of the receiving hospital in [employer] Patient Tracker[place] [address] EMS Patient Care Report Name: LAKIA FISHER Room: [address] M.R.#: [id number] Admission: 03/06/20 Attend Phys: Zbigniew Richard MD Discharge: Date of : 41 Report #: [id number] is provided "as is."
[2020-03-06 21:00] VITALS: BP 117/55
[2020-03-06] MEDS ORDERED: FUROSEMIDE 40 M40 MG PO (21:10)
[2020-03-06 22:12] LABS: ABSOLUTE EOSINOPHILS 0.1 thou/uL (0.0-0.7); ABSOLUTE LYMPHOCYTES 0.9 thou/uL (0.8-5.3); ABSOLUTE MONOCYTES 0.4 thou/uL (0.0-1.2); ABSOLUTE NEUTROPHILS 4.2 thou/uL (1.6-8.1); BASOPHILS 0.8 %; EOSINOPHILS 1.9 %; HEMATOCRIT 26.7 % (42.0-52.0); HEMOGLOBIN 8.5 gm/dL (14.0-18.0); LYMPHOCYTES 16.2 %; MCH 28.1 pg (26.0-34.0); MCHC 31.9 g/dL (28.0-37.0); MONOCYTES 7.2 %; NUCLEATED RBCS 0 /100WBC; PLATELET COUNT* 224 thou/uL (150-400); POLYS 73.9 %; RBC 3.03 mil/uL (4.50-6.00); RDW-CV 16.8 % (10.5-14.5); WBC 5.7 thou/uL (4.0-11.0)
[2020-03-06 22:23] LABS: ANION GAP 7 mmol/L (7-16); BUN 9 mg/dL (7-18); CHLORIDE 107 mmol/L (98-107); CO2 25 mmol/L (21-32); CREATININE 0.7 mg/dL (0.6-1.3); GLUCOSE 94 mg/dL (70-99); POTASSIUM 3.6 mmol/L (3.5-5.1); SODIUM 139 mmol/L (136-145)
[2020-03-06 22:26] LABS: PROTIME 78.5 Seconds (9.20-11.50)
[2020-03-06 22:33] LABS: ALBUMIN 2.3 g/dL (3.4-5.0); ALKALINE PHOSPHATASE 94 U/L (46-116); LIPASE 46 U/L (73-393); MAGNESIUM 1.6 mg/dL (1.8-2.4); NT-PRO BRAIN NAT PEPTIDE 1406 pg/mL (<300); SGOT 25 U/L (15-37); TOTAL BILIRUBIN 0.2 mg/dL (<0.1-1.0); TOTAL PROTEIN 5.8 g/dL (6.4-8.2)
[2020-03-06 22:34] LABS: SGPT < 6 U/L (30-65)
[2020-03-06 22:58] LABS: INR > 8.0
[2020-03-07] VITALS (7 sets, daily range): BP systolic 127–182; BP diastolic 61–72
[2020-03-07 04:00] LABS: URINE BILIRUBIN NEGATIVE (Negative); URINE BLOOD TRACE (Negative); URINE CLARITY SL CLOUDY; URINE COLOR YELLOW; URINE GLUCOSE-RANDOM NEGATIVE (Negative); URINE KETONES NEGATIVE (Negative); URINE PROTEIN NEGATIVE (Negative); URINE SPECIFIC GRAVITY 1.015 (1.005-1.030); URINE UROBILINOGEN 0.2 E.U./dl (0.2-1.0)
[2020-03-07 04:01] LABS: URINE LEUKOCYTES-REFLEX 3+ (Negative); URINE NITRITE-REFLEX POSITIVE (Negative)
[2020-03-07 05:26] LABS: BACTERIA-REFLEX >30 Many /HPF (None Seen); CASTS None Seen /LPF (None Seen); CRYSTALS None Seen /LPF (None Seen); SQUAMOUS 0-3 Few /LPF (0-3); URINE RBC 0-2 Rare /HPF (0-2); URINE WBC-REFLEX >25 Many /HPF (0-5)
[2020-03-07 11:14] LABS: PROTIME 65.4 Seconds (9.20-11.50)
[2020-03-07 11:17] LABS: INR 6.9
[2020-03-08 00:18] VITALS: BP 144/65
[2020-03-08 02:05] LABS: GLYCOHEMOGLOBIN (HGB A1C) 5.4 % (4.8-5.6)
[2020-03-08 04:00] VITALS: BP 153/68
[2020-03-08 05:53] LABS: ABSOLUTE BASOPHILS 0.1 thou/uL (0.0-0.2); ABSOLUTE EOSINOPHILS 0.2 thou/uL (0.0-0.7); ABSOLUTE LYMPHOCYTES 1.5 thou/uL (0.8-5.3); ABSOLUTE MONOCYTES 0.4 thou/uL (0.0-1.2); ABSOLUTE NEUTROPHILS 3.8 thou/uL (1.6-8.1); BASOPHILS 1.9 %; EOSINOPHILS 2.9 %; HEMATOCRIT 25.8 % (42.0-52.0); HEMOGLOBIN 8.4 gm/dL (14.0-18.0); LYMPHOCYTES 25.4 %; MCH 28.3 pg (26.0-34.0); MCHC 32.8 g/dL (28.0-37.0); MCV 86.5 fL (80.0-100.0); MONOCYTES 6.6 %; MPV 7.8 fl. (7.2-11.1); NUCLEATED RBCS 0 /100WBC; PLATELET COUNT* 228 thou/uL (150-400); POLYS 63.2 %; RBC 2.98 mil/uL (4.50-6.00); RDW-CV 16.8 % (10.5-14.5)
[2020-03-08 06:13] LABS: CREATININE 0.7 mg/dL (0.6-1.3)
[2020-03-08 06:16] LABS: PROTIME 36.2 Seconds (9.20-11.50)
[2020-03-08 06:17] LABS: INR 3.7
[2020-03-08 07:57] VITALS: BP 140/61
[2020-03-08 12:00] VITALS: BP 159/73
[2020-03-08 21:15] VITALS: BP 143/73
[2020-03-09] VITALS: BP 137/58
[2020-03-09 04:00] VITALS: BP 139/66
[2020-03-09 04:44] LABS: ABSOLUTE EOSINOPHILS 0.2 thou/uL (0.0-0.7); ABSOLUTE LYMPHOCYTES 1.3 thou/uL (0.8-5.3); ABSOLUTE MONOCYTES 0.4 thou/uL (0.0-1.2); ABSOLUTE NEUTROPHILS 4.4 thou/uL (1.6-8.1); BASOPHILS 0.6 %; EOSINOPHILS 3.6 %; HEMATOCRIT 28.2 % (42.0-52.0); HEMOGLOBIN 9.3 gm/dL (14.0-18.0); LYMPHOCYTES 20.3 %; MCH 28.4 pg (26.0-34.0); MCHC 32.9 g/dL (28.0-37.0); MCV 86.5 fL (80.0-100.0); MONOCYTES 6.2 %; MPV 7.7 fl. (7.2-11.1); NUCLEATED RBCS 0 /100WBC; PLATELET COUNT* 256 thou/uL (150-400); POLYS 69.3 %; RBC 3.27 mil/uL (4.50-6.00); RDW-CV 16.7 % (10.5-14.5); WBC 6.3 thou/uL (4.0-11.0)
[2020-03-09 04:47] LABS: CALCIUM 8.6 mg/dL (8.5-10.1); CREATININE 0.8 mg/dL (0.6-1.3); POTASSIUM 3.8 mmol/L (3.5-5.1)
[2020-03-09 04:50] LABS: PROTIME 20.6 Seconds (9.20-11.50)
[2020-03-09 08:00] VITALS: BP 138/63
--- NOTE | 2020-03-09 10:26 | EKG ---
[place] [address] ELECTROCARDIOGRAM REPORT Name: LAKIA BENTON Room: [address] ADM IN [facility].#: [id number] Admission: 03/07/20 Attend Phys: Zbigniew Richard, Discharge: Date of : 41 Date of Service: 03/06/202128 Report #: [id number] THIS REPORT FOR: //name// [facility] ED Test Date: 2020-03-06 Test Time: 21:29:16 Pat Name: LAKIA BENTON Department: Room: [facility] Gender: M Investigative Shopper: SAUL : 1945 Requested By: Sydni Mendoza Order Number: [id number] MD: Abdifatah Dewitt Measurements Intervals [place] Rate: 53 P: 31 WV: 252 QRS: 42 QRSD: 135 T: -2 QT: 505 QTc: 475 Interpretive Statements Sinus bradycardia Prolonged [place] interval Right bundle branch block Compared to ECG 01/16/2020 18:06:21 rate has slowed Electronically Signed On 03-09-2020 10:26:24 HIGH SCHOOL ASSISTANT FOOTBALL COACH by Abdifatah Dewitt [email or web address] <ELECTRONICALLY SIGNED> By: Abdifatah Dewitt MD, FACC 03/09/20 1026 28 28 Abdifatah Dewitt MD, [facility] /EPI
[2020-03-09 11:15] VITALS: BP 138/63
[2020-03-09 12:00] VITALS: BP 163/86
[2020-03-09] MEDS ORDERED: JANTOVEN2 MG PO (12:09)
[2020-03-09] MEDS ORDERED: CEFDINIR300 MG PO (12:09)
[2020-03-09 14:46] VITALS: BP 138/63
== END 2020-03-09 15:30 | disposition home or self-care (01) | DRG 690 ==
LOC: M.ERS 20:58 → M.TBA-ER 23:57 → M.2W 03-07 00:29
PROVIDERS: Emergency Medicine; Internal Medicine; ADMIT Internal Medicine; ATTEND Internal Medicine
DX: N39.0 Urinary tract infection, site not specified (principal); E44.1 Mild protein-calorie malnutrition; L03.116 Cellulitis of left lower limb; L03.115 Cellulitis of right lower limb; E11.649 Type 2 diabetes mellitus with hypoglycemia without coma; Z20.822 Contact with and (suspected) exposure to COVID-19; G89.29 Other chronic pain; M54.9 Dorsalgia, unspecified; M06.9 Rheumatoid arthritis, unspecified; E66.01 Morbid (severe) obesity due to excess calories; M19.90 Unspecified osteoarthritis, unspecified site; L98.429 Non-pressure chronic ulcer of back with unspecified severity; E83.42 Hypomagnesemia; K59.00 Constipation, unspecified; Z96.651 Presence of right artificial knee joint; M75.101 Unspecified rotator cuff tear or rupture of right shoulder, not specified as traumatic; E11.42 Type 2 diabetes mellitus with diabetic polyneuropathy; G20 Parkinson's disease; B96.20 Unspecified Escherichia coli [E. coli] as the cause of diseases classified elsewhere; D50.9 Iron deficiency anemia, unspecified; T45.515A Adverse effect of anticoagulants, initial encounter; Y92.89 Other specified places as the place of occurrence of the external cause; Z68.33 Body mass index [BMI] 33.0-33.9, adult; Z88.8 Allergy status to other drugs, medicaments and biological substances; Z95.5 Presence of coronary angioplasty implant and graft; Z79.891 Long term (current) use of opiate analgesic

== ENCOUNTER → 2020-03-10 | Outpatient (CLI) | payer OTHER ==
[~2020-03-10] MED LIST changes: +CEFDINIR300 MG PO; +FUROSEMIDE 40 M40 MG PO
== END ==
LOC: M.WC 13:55
PROVIDERS: ATTEND Emergency Medicine Undersea and Hyperbaric Medicine
DX: E11.622 Type 2 diabetes mellitus with other skin ulcer (principal); L97.812 Non-pressure chronic ulcer of other part of right lower leg with fat layer exposed; L97.822 Non-pressure chronic ulcer of other part of left lower leg with fat layer exposed; L89.153 Pressure ulcer of sacral region, stage 3; L98.492 Non-pressure chronic ulcer of skin of other sites with fat layer exposed; I89.0 Lymphedema, not elsewhere classified; I11.0 Hypertensive heart disease with heart failure; I50.22 Chronic systolic (congestive) heart failure; G20 Parkinson's disease; M06.9 Rheumatoid arthritis, unspecified; Z86.718 Personal history of other venous thrombosis and embolism; Z87.891 Personal history of nicotine dependence

== ENCOUNTER 2020-03-25 16:31 | Inpatient (IN) | payer OTHER ==
[~2020-03-25] VITALS: Ht 177.8 cm; Wt 107.4 kg
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
[2020-03-25 16:34] VITALS: BP 118/57
[2020-03-25 17:17] LABS: ABSOLUTE EOSINOPHILS 0.1 thou/uL (0.0-0.7); ABSOLUTE LYMPHOCYTES 0.9 thou/uL (0.8-5.3); ABSOLUTE MONOCYTES 0.5 thou/uL (0.0-1.2); ABSOLUTE NEUTROPHILS 4.1 thou/uL (1.6-8.1); BASOPHILS 0.6 %; EOSINOPHILS 1.8 %; HEMATOCRIT 26.1 % (42.0-52.0); HEMOGLOBIN 8.3 gm/dL (14.0-18.0); LYMPHOCYTES 15.8 %; MCH 27.2 pg (26.0-34.0); MCHC 31.7 g/dL (28.0-37.0); MONOCYTES 8.8 %; MPV 7.5 fl. (7.2-11.1); NUCLEATED RBCS 0 /100WBC; PLATELET COUNT* 215 thou/uL (150-400); RBC 3.03 mil/uL (4.50-6.00); RDW-CV 16.3 % (10.5-14.5); WBC 5.7 thou/uL (4.0-11.0)
[2020-03-25 17:25] LABS: ANION GAP 9 mmol/L (7-16); BUN 11 mg/dL (7-18); CALCIUM 8.3 mg/dL (8.5-10.1); CHLORIDE 105 mmol/L (98-107); CO2 24 mmol/L (21-32); CREATININE 0.7 mg/dL (0.6-1.3); GLUCOSE 77 mg/dL (70-99); SODIUM 138 mmol/L (136-145)
[2020-03-25 17:28] LABS: APTT 36.1 Seconds (25.0-31.3); INR 2.6; PROTIME 26.1 Seconds (9.20-11.50)
[2020-03-25 17:36] LABS: ALBUMIN 2.4 g/dL (3.4-5.0); ALKALINE PHOSPHATASE 86 U/L (46-116); NT-PRO BRAIN NAT PEPTIDE 1562 pg/mL (<300); SGOT 17 U/L (15-37); SGPT < 6 U/L (30-65); TOTAL BILIRUBIN 0.3 mg/dL (<0.1-1.0); TOTAL PROTEIN 5.7 g/dL (6.4-8.2)
[2020-03-25 18:36] VITALS: BP 150/73
[2020-03-25 18:49] VITALS: BP 145/81
[2020-03-25 20:00] VITALS: BP 154/70
[2020-03-25 23:51] LABS: URINE BILIRUBIN NEGATIVE (Negative); URINE BLOOD TRACE (Negative); URINE CLARITY CLEAR; URINE COLOR YELLOW; URINE GLUCOSE-RANDOM NEGATIVE (Negative); URINE KETONES NEGATIVE (Negative); URINE LEUKOCYTES-REFLEX NEGATIVE (Negative); URINE NITRITE-REFLEX NEGATIVE (Negative); URINE PROTEIN NEGATIVE (Negative); URINE SPECIFIC GRAVITY 1.015 (1.005-1.030); URINE UROBILINOGEN 0.2 E.U./dl (0.2-1.0)
[2020-03-26] VITALS (7 sets, daily range): BP systolic 94–169; BP diastolic 41–70
--- NOTE | 2020-03-26 05:10 | NUR ---
PT A&O, VSS ON RA. ON 3L HS PER PT REQUEST. PT STATED THAT HE WAS UNABLE TO GET UP SO HE WANTED TO BE CATHERIZED. EDUCATION GIVEN, BUT PT REFUSED TO USE URINAL. CONDOM CATHETER APPLIED. PT WAS STILL UNABLE TO URINATE, 850ML ON BLADDER SCAN. NOTIFIED AND REINA CATHERTER INSERTED. CELLULITIS ON BLE NOTED. LEGS ELEVATED. NO C/O PAIN. HOURLY ROUNDINGS, TURNS COMPLETED. CALL LIGHT WITHIN REACH. WILL CONTINUE TO MONITOR.
[2020-03-26 07:33] LABS: INR 2.3; PROTIME 23.1 Seconds (9.20-11.50)
--- NOTE | 2020-03-26 10:12 | EKG ---
[place] [address] ELECTROCARDIOGRAM REPORT Name: LAKIA BENTON Room: [address] ADM IN .R.#: [id number] Admission: 03/25/20 Attend Phys: Lakia Arciniega, Discharge: Date of : 41 Date of Service: 03/25/20 1638 Report #: [id number] THIS REPORT FOR: //name// [facility] ED Test Date: 2020-03-25 Test Time: 16:38:29 Pat Name: LAKIA BENTON Department: Room: [facility] Gender: M It Account Manager: TAYE : 1945 Requested By: Zach Isabel Order Number: [id number] MD: Abdifatah Dewitt Measurements Intervals [place] Rate: 73 P: 52 NM: 248 QRS: 54 QRSD: 126 T: 8 QT: 445 QTc: 491 Interpretive Statements Sinus rhythm Prolonged NM interval Right bundle branch block Compared to ECG 03/06/2020 21:29:16 Sinus bradycardia no longer present Electronically Signed On 03-26-2020 10:12:39 VICE PRESIDENT OF ADVERTISING by Abdifatah Dewitt [email or web address] <ELECTRONICALLY SIGNED> By: Abdifatah Dewitt MD, FAC 03/26/20 1012 1638 1638 Abdifatah Dewitt MD, [facility] /EPI
--- NOTE | 2020-03-26 14:25 | NUR ---
WOUND NURSE: PATIENT SEEN TO ADDRESS LYMPHEDEMA TO BLE AND STAGE 3 PRESSURE INJURY TO COCCYX. THIS PATIENT IS SEEN REGULARLY IN THE [facility]. COCCYX WOUND MEASURES 1.5 X 1.3 X 1.0. RED GRANULATION TISSUE IN WOUND BED AND SEROUSANGUINOUS DRAINAGE MODERATE AMOUNT. THERE IS PERIWOUND REDNESS FROM PRESSURE WHICH IS BLANCHEABLE. WOUND CARE PROVIDED PRESCRIBED. PATIENT WITH LYMPHEDEMA BLE. LEGS ARE REDDENED, BUT INTACT. LIGHT COMPRESSSION USING COTTON, KERLEX, AND AKIKO WRAPS PRESCRIBED. ORDERED LOW AIRLOSS MATTRESS FOR PATIENT HE IS DEPENDENT WITH REPOSITIONING AND HAS A STAGE 3 PRESSURE INJURY. PATIENT INSTRUCTED ON NEED TO OFFLOAD BY SIDE TO SIDE REPOSITIONING. PATIENT STATES HE UNDERSTANDS. ALSO INSTRUCTED ON NEED FOR ELEVATION AND COMPRESSION TO CONTROL LYMPHEDEMA. ALSO INSTRUCTED ON NUTRITIONAL NEEDS AND ON POTENTIAL COMPLICATIONS.
--- NOTE | 2020-03-26 16:00 | NUR ---
PT.KNOWN FROM PREVIOUS ADMISSIONS. HE LIVES ALONE IN AN APT. BROTHER AND SISTER ARE SUPPORTIVE. HE IS CURRENTLY ON SERVICE WITH [facility]. IS SEEN IN [facility] FOR STAGE 3 PRESSURE WOUND AND BLE LYMPHEDEMA. IS PUI CURRENTLY. CM WILL FOLLOW.
--- NOTE | 2020-03-26 17:40 | NUR ---
PT REMAINS ALERT AND ORIENTED BUT FORGETFUL AT TIMES. PT HAD LEFT UPPER ARM MIDLINE PLACED TODAY WITH TRANSPARENT DRESSING AND MEDICATED PATCH. VALVE LAPPER ALSO PLACED NEW RIGHT FOREARM PERIPHERAL IV. PT HAS MULTIPLE ABX. IRON INFUSION ALSO ORDERED TODAY. PT GIVEN SCHEDULED MEDS. WOUND CARE NURSE DRESSED BILATERAL LEGS. SEE NOTES. COCCYX WOUND ALSO DRESSED. DRESSINGS REMAIN C/D/I. PT REMAINS ON 3L O2. NON PRODUCTIVE COUGH AT TIMES. WILL CONTINUE TO MONITOR.
[2020-03-27 04:20] VITALS: BP 159/78
--- NOTE | 2020-03-27 04:41 | NUR ---
PT SLEPT MOST OF SHIFT. ASSESSMENT DOCUMENTED. MEDS GIVEN PER E-MAR. IV AND MIDLINE PATENT. PAIN MEDS GIVEN PER E-MAR WITH RELIEF. PT ON 3L NC THIS SHIFT. DRESSING C/D/I. REINA DRAINING TO DEPENDANT DRAINAGE. FALL PRECAUTIONS IN PLACE. PTS COVID PCR CAME BACK NOT DETECTED. NOTIFIED. ORDERS TO DC ISOLATION RECIEVED. PT TO MOVE TO ROOM 231. REPORT GIVEN TO NURSE.
[2020-03-27 05:09] VITALS: BP 161/85
[2020-03-27 05:35] LABS: HEMATOCRIT 27.1 % (42.0-52.0); HEMOGLOBIN 8.6 gm/dL (14.0-18.0); MCH 27.1 pg (26.0-34.0); MCHC 31.8 g/dL (28.0-37.0); MCV 85.2 fL (80.0-100.0); MPV 7.5 fl. (7.2-11.1); RBC 3.18 mil/uL (4.50-6.00); RDW-CV 15.9 % (10.5-14.5)
[2020-03-27 05:43] LABS: INR 2.4; PROTIME 24.5 Seconds (9.20-11.50)
[2020-03-27 06:33] LABS: ALBUMIN 2.1 g/dL (3.4-5.0); ALKALINE PHOSPHATASE 83 U/L (46-116); ANION GAP 6 mmol/L (7-16); BUN 14 mg/dL (7-18); CHLORIDE 106 mmol/L (98-107); CO2 28 mmol/L (21-32); CREATININE 0.8 mg/dL (0.6-1.3); GLUCOSE 177 mg/dL (70-99); MAGNESIUM 1.9 mg/dL (1.8-2.4); POTASSIUM 4.1 mmol/L (3.5-5.1); SGOT 11 U/L (15-37); SGPT < 6 U/L (30-65); SODIUM 140 mmol/L (136-145); TOTAL BILIRUBIN 0.3 mg/dL (<0.1-1.0); TOTAL PROTEIN 5.6 g/dL (6.4-8.2)
[2020-03-27 08:00] VITALS: BP 154/69
--- NOTE | 2020-03-27 08:37 | NUR ---
CALL FROM [facility] STATING THEY CANNOT ACCEPT PT.BACK ON SERVICE AT DISCHARGE DUE TO HIS NON COMPLIANCE WITH HIS BLE WRAPS. THEY FEEL PT.WOULD DO BETTER WITH AN AGENCY THAT HAS A LYPHEDEMA SPECIALIST.
--- NOTE | 2020-03-27 14:28 | NUR ---
PT ROUNDS: PT TRANSFERED FROM COVID UNIT. PT CONTS ON IV MEDS AND IRON INFUSION.
--- NOTE | 2020-03-27 18:30 | NUR ---
RECEIVED REPORT. ASSUMED CARE OF PT AROUND 0730. AM ASSESSMENT AND VITALS COMPLETED CHARTED. MEDS PER EMAR. PT REFUSED WOUND CARE THIS SHIFT, EDUCATED ON NEED TO DO CARES. TURNS Q2HRS. APPETITE GOOD. FALL PRECAUTIONS. HOURLY ROUNDING. CALL LIGHT WITHIN REACH. REINA IN PLACE TO DD
[2020-03-27 20:00] VITALS: BP 150/63
[2020-03-28 00:35] VITALS: BP 170/72
[2020-03-28 04:00] VITALS: BP 181/81
[2020-03-28 04:50] LABS: HEMATOCRIT 29.3 % (42.0-52.0); HEMOGLOBIN 9.4 gm/dL (14.0-18.0); MCH 27.2 pg (26.0-34.0); MCV 85.2 fL (80.0-100.0); MPV 7.5 fl. (7.2-11.1); RBC 3.44 mil/uL (4.50-6.00); RDW-CV 15.5 % (10.5-14.5); WBC 6.2 thou/uL (4.0-11.0)
[2020-03-28 05:06] LABS: INR 2.2; PROTIME 22.4 Seconds (9.20-11.50)
[2020-03-28 05:29] LABS: ALBUMIN 2.1 g/dL (3.4-5.0); CALCIUM 8.2 mg/dL (8.5-10.1); CREATININE 0.7 mg/dL (0.6-1.3); MAGNESIUM 1.7 mg/dL (1.8-2.4); POTASSIUM 4.4 mmol/L (3.5-5.1); TOTAL BILIRUBIN 0.2 mg/dL (<0.1-1.0); TOTAL PROTEIN 5.9 g/dL (6.4-8.2)
[2020-03-28 08:00] VITALS: BP 169/83
[2020-03-28 16:35] VITALS: BP 158/80
[2020-03-28 21:30] VITALS: BP 150/71
[2020-03-29] VITALS (7 sets, daily range): BP systolic 104–165; BP diastolic 61–80
[2020-03-29 04:46] LABS: HEMATOCRIT 26.9 % (42.0-52.0); HEMOGLOBIN 8.7 gm/dL (14.0-18.0); MCH 27.4 pg (26.0-34.0); MCHC 32.4 g/dL (28.0-37.0); MCV 84.5 fL (80.0-100.0); MPV 7.4 fl. (7.2-11.1); RBC 3.19 mil/uL (4.50-6.00); RDW-CV 15.7 % (10.5-14.5); WBC 7.7 thou/uL (4.0-11.0)
[2020-03-29 05:00] LABS: CALCIUM 8.2 mg/dL (8.5-10.1); CREATININE 0.7 mg/dL (0.6-1.3); POTASSIUM 3.9 mmol/L (3.5-5.1)
[2020-03-29 06:13] LABS: INR 1.9; PROTIME 19.4 Seconds (9.20-11.50)
--- NOTE | 2020-03-29 08:16 | NUR ---
PATIENT HAS SLEPT WELL THROUGHOUT MOST OF THE NIGHT. VSS ON 2L 02 VIA NASAL CANNULA. MEDICATIONS GIVEN ORDERED AND CHARTED. PATIENT AFIB WITH PAC'S AND PVC'S AT TIMES AND SR WITH BBB ON BLOOD TYPER. DRESSINGS TO BILATERAL LOWER EXTREMITIES ARE C/D/I. REINA TO DEPENDENT DRAINAGE WITH YELLOW URINE OUTPUT. PATIENT INSTRUCTED TO USE CALL LIGHT WHEN NEEDING ASSISTANCE. HOURLY ROUNDS MADE. WILL CONTINUE WITH PLAN OF CARE AND NURSING TO MONITOR.
[2020-03-30 04:21] LABS: HEMATOCRIT 28.3 % (42.0-52.0); HEMOGLOBIN 9.1 gm/dL (14.0-18.0); MCH 27.7 pg (26.0-34.0); MCHC 32.3 g/dL (28.0-37.0); MCV 85.8 fL (80.0-100.0); MPV 7.2 fl. (7.2-11.1); RBC 3.3 mil/uL (4.50-6.00); RDW-CV 15.8 % (10.5-14.5); WBC 6.5 thou/uL (4.0-11.0)
[2020-03-30 04:32] LABS: INR 1.8; PROTIME 18.8 Seconds (9.20-11.50)
[2020-03-30 04:35] VITALS: BP 121/55
[2020-03-30 04:36] LABS: CALCIUM 8.6 mg/dL (8.5-10.1); CREATININE 0.8 mg/dL (0.6-1.3)
[2020-03-30 08:08] VITALS: BP 135/70
[2020-03-30 12:20] VITALS: BP 131/54
[2020-03-30 15:57] VITALS: BP 126/56
--- NOTE | 2020-03-30 16:00 | NUR ---
PT.LAYING IN BED. DISCUSSED DISCHARGE PLANNING. TOLD HIM IT APPEARED THAT [facility] WAS NOT GOING TO BE ABLE TO QUALIFY HIM TO COME THERE. DISCUSSED OTHER OPTIONS. HE REFUSED SNF. HE SAID HE WANTED TO GO HOME WITH HOME HEALTH. EXPLAINED THAT [facility] HAD SAID LAST WEEK THEY WERE NOT GOING TO TAKE HIM BACK ON SERVICE BECAUSE HE WAS NON COMPLIANT ONT HIS BLE LYMPHEDEMA WRAPS. HE SAID IT WASN'T BEING NON COMPLIANT, THEY JUST WOULDN'T STAY ON . SHE SAID HE WOULD NOTIFY THEM AND THE NEXT TIME ,THEY WOULD SEND SOMEONE DIFFERENT. CM WILL CONTACT [facility] AGAIN IN AM TO DISCUSS.
[2020-03-30 23:58] VITALS: BP 116/80
[2020-03-31 04:25] VITALS: BP 126/54
[2020-03-31 04:41] LABS: HEMATOCRIT 30.4 % (42.0-52.0); HEMOGLOBIN 9.9 gm/dL (14.0-18.0); MCH 27.8 pg (26.0-34.0); MCHC 32.7 g/dL (28.0-37.0); MCV 85.1 fL (80.0-100.0); MPV 7.3 fl. (7.2-11.1); RBC 3.57 mil/uL (4.50-6.00); RDW-CV 16.5 % (10.5-14.5); WBC 5.9 thou/uL (4.0-11.0)
[2020-03-31 04:49] LABS: INR 1.5; PROTIME 15.7 Seconds (9.20-11.50)
[2020-03-31 04:50] LABS: CALCIUM 8.3 mg/dL (8.5-10.1); CREATININE 0.7 mg/dL (0.6-1.3)
[2020-03-31 08:45] VITALS: BP 119/59
[2020-03-31 12:26] VITALS: BP 141/86
[2020-03-31 16:00] VITALS: BP 121/55
--- NOTE | 2020-03-31 16:18 | NUR ---
CM REACHED OUT TO PT'S SISTER MEGAN PT IDENTIFIED HER SOMEONE WHO COULD PROVIDED 24/ CARE/SUPERVISION TO PT. HOWEVER, MEGAN INDICATED SHE IS ONLY AVIAL TO SUPERVISE PT 2-3HR/DAY, AND NOTHING IN THE EVENINGS. IT HAS BEEN DECIDED BY PT TO GO TO SNF. CM FAXED REFERRALS TO [facility]. PT'S FIRST CHOICE IS [facility].
--- NOTE | 2020-03-31 19:30 | NUR ---
PATIENT CALLED RN INTO ROOM AROUND 1730 AND REQUESTED TO HAVE [facility] REQUESTED FIRST CHOICE FOR A SNF. HE HAD PREVIOUSLY STATED [facility]. RN TOLD PATIENT CM WOULD BE MADE AWARE OF REQUESTED CHANGE. GURU LEFT FOR DONNA ON CELL PHONE.
[2020-03-31 23:47] VITALS: BP 130/57
[2020-04-01 04:00] VITALS: BP 133/55
[2020-04-01 04:21] LABS: INR 1.5; PROTIME 15.1 Seconds (9.20-11.50)
[2020-04-01 08:00] VITALS: BP 129/61
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
--- NOTE | 2020-04-01 16:54 | NUR ---
CM INFORMED DURING PRIME ROUNDING OF THE PLAN OF CARE FOR THE PT. PHYSICIAN INFORMS OF PLAN TO D/C PT TO SNF TODAY. CM SPOKE TO PT AND HE INFORMS OF PLAN TO D/C TO [facility]. CM CALLED AND FAXED REFERRAL TO [facility] AND THEY ACCEPTED PT. CM FAXED PT'S D/C ORDERS, LEVEL ONE SCREENING, AND NEGATIVE COVID RESULT. ISM TO PROVIDE TRANSPORT AT [phone]. RN IN-CHARGE OF PT INFORMED OF WHERE TO CALL REPORT AND PT'S TIME OF TRASPORT. CM WILL REMAIN AVAILABLE TO ASSIST AND FOLLOW NEEDED. [facility]' PHONE: [phone] FAX: [phone]
== END 2020-04-01 16:50 | DRG 177 ==
LOC: M.ERS 16:31 → M.TBA-ER 18:12 → M.2W 18:12 → M.ORTHSURG 18:12 → M.2W 03-27 04:36
PROVIDERS: Family Medicine; Internal Medicine; ADMIT Internal Medicine; ATTEND Internal Medicine
PROC: 05HF33Z Insertion of Infusion Device into Left Cephalic Vein, Percutaneous Approach (ICD-10-PCS; 2020-03-26)
PROC: B54NZZA Ultrasonography of Left Upper Extremity Veins, Guidance (ICD-10-PCS; 2020-03-26)
PROC: 5A0935A Assistance with Respiratory Ventilation, Less than 24 Consecutive Hours, High Flow/Velocity Cannula (ICD-10-PCS; principal; 2020-03-27)
DX: J15.6 Pneumonia due to other Gram-negative bacteria (principal); J96.01 Acute respiratory failure with hypoxia; L03.115 Cellulitis of right lower limb; L03.116 Cellulitis of left lower limb; D68.59 Other primary thrombophilia; D64.9 Anemia, unspecified; E11.40 Type 2 diabetes mellitus with diabetic neuropathy, unspecified; E11.65 Type 2 diabetes mellitus with hyperglycemia; M54.9 Dorsalgia, unspecified; G89.29 Other chronic pain; M06.9 Rheumatoid arthritis, unspecified; E66.01 Morbid (severe) obesity due to excess calories; G20 Parkinson's disease; I25.10 Atherosclerotic heart disease of native coronary artery without angina pectoris; M19.90 Unspecified osteoarthritis, unspecified site; Z20.822 Contact with and (suspected) exposure to COVID-19; Z96.651 Presence of right artificial knee joint; Z98.1 Arthrodesis status; Z90.49 Acquired absence of other specified parts of digestive tract; Z68.34 Body mass index [BMI] 34.0-34.9, adult; Z95.5 Presence of coronary angioplasty implant and graft; Z79.01 Long term (current) use of anticoagulants; Z79.4 Long term (current) use of insulin; Z79.899 Other long term (current) drug therapy; Z88.8 Allergy status to other drugs, medicaments and biological substances

== ENCOUNTER 2020-04-28 17:03 | Inpatient (IN) | payer OTHER ==
[~2020-04-28] VITALS: Ht 177.8 cm; Wt 98.0 kg
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
[~2020-04-28 17:03] MED LIST changes: -CALCIUM CARBON500 MG PO; +CALCIUM CARBON600 MG PO
[2020-04-28 17:08] VITALS: BP 148/55
[2020-04-28] MEDS ORDERED: ABREVA2 GM TOP (17:11)
[2020-04-28] MEDS ORDERED: HYDROCODON-ACE1 EAC7 PO (17:13)
[2020-04-28 18:29] LABS: ABSOLUTE BASOPHILS 0.1 thou/uL (0.0-0.2); ABSOLUTE EOSINOPHILS 0.1 thou/uL (0.0-0.7); ABSOLUTE LYMPHOCYTES 1.3 thou/uL (0.8-5.3); ABSOLUTE MONOCYTES 0.7 thou/uL (0.0-1.2); ABSOLUTE NEUTROPHILS 7.7 thou/uL (1.6-8.1); BASOPHILS 0.7 %; EOSINOPHILS 0.6 %; HEMATOCRIT 34.6 % (42.0-52.0); HEMOGLOBIN 11.2 gm/dL (14.0-18.0); LYMPHOCYTES 13.5 %; MCH 26.9 pg (26.0-34.0); MCHC 32.4 g/dL (28.0-37.0); MCV 82.9 fL (80.0-100.0); MONOCYTES 7.1 %; MPV 7.4 fl. (7.2-11.1); NUCLEATED RBCS 0 /100WBC; PLATELET COUNT* 255 thou/uL (150-400); POLYS 78.1 %; RBC 4.18 mil/uL (4.50-6.00); RDW-CV 16.5 % (10.5-14.5); WBC 9.8 thou/uL (4.0-11.0)
[2020-04-28 18:39] LABS: CALCIUM 9.5 mg/dL (8.5-10.1); CREATININE 0.9 mg/dL (0.6-1.3); POTASSIUM 4.5 mmol/L (3.5-5.1)
[2020-04-28 18:44] LABS: ALBUMIN 2.6 g/dL (3.4-5.0); TOTAL BILIRUBIN 0.4 mg/dL (<0.1-1.0); TOTAL PROTEIN 6.8 g/dL (6.4-8.2)
[2020-04-28 18:49] LABS: APTT 29.9 Seconds (25.0-31.3); INR 1.5
[2020-04-28 19:51] LABS: URINE BLOOD NEGATIVE (Negative); URINE CLARITY CLEAR; URINE COLOR YELLOW; URINE GLUCOSE-RANDOM NEGATIVE (Negative); URINE KETONES NEGATIVE (Negative); URINE LEUKOCYTES-REFLEX TRACE (Negative); URINE NITRITE-REFLEX NEGATIVE (Negative); URINE PROTEIN NEGATIVE (Negative); URINE SPECIFIC GRAVITY <= 1.005 (1.005-1.030); URINE UROBILINOGEN 0.2 E.U./dl (0.2-1.0)
[2020-04-28 19:56] LABS: ICTOTEST (BILI CONFIRMATORY) Negative (Negative); URINE BILIRUBIN 1+ (Negative)
[2020-04-28 19:57] LABS: BACTERIA-REFLEX 1-9 Few /HPF (None Seen); CASTS None Seen /LPF (None Seen); CRYSTALS None Seen /LPF (None Seen); SQUAMOUS NONE SEEN /LPF (0-3); URINE RBC 0-2 Rare /HPF (0-2); URINE WBC-REFLEX 0-5 Rare /HPF (0-5)
[2020-04-28 21:23] VITALS: BP 136/52
[2020-04-28 21:30] VITALS: BP 136/60
[2020-04-29 04:56] LABS: ALKALINE PHOSPHATASE 113 U/L (46-116); ANION GAP 6 mmol/L (7-16); BUN 19 mg/dL (7-18); CALCIUM 8.4 mg/dL (8.5-10.1); CHLORIDE 102 mmol/L (98-107); CO2 27 mmol/L (21-32); CREATININE 0.8 mg/dL (0.6-1.3); GLUCOSE 245 mg/dL (70-99); MAGNESIUM 1.8 mg/dL (1.8-2.4); POTASSIUM 4.1 mmol/L (3.5-5.1); SGOT 18 U/L (15-37); SODIUM 135 mmol/L (136-145); TOTAL BILIRUBIN 0.4 mg/dL (<0.1-1.0); TOTAL PROTEIN 5.5 g/dL (6.4-8.2)
[2020-04-29 04:57] LABS: SGPT < 6 U/L (30-65)
[2020-04-29 05:08] LABS: HEMOGLOBIN 9.3 gm/dL (14.0-18.0); MCH 26.7 pg (26.0-34.0); MCV 83.3 fL (80.0-100.0); RBC 3.49 mil/uL (4.50-6.00); RDW-CV 16.5 % (10.5-14.5); WBC 7.1 thou/uL (4.0-11.0)
[2020-04-29 08:00] VITALS: BP 103/57
--- NOTE | 2020-04-29 10:10 | EKG ---
[place] [address] ELECTROCARDIOGRAM REPORT Name: LAKIA BENTON Room: [address] IN .R.#: [id number] Admission: 04/28/20 Attend Phys: Allison Nelson, Discharge: Date of : 41 Date of Service: 04/28/20 1719 Report #: [id number] THIS REPORT FOR: //name// [facility] ED Test Date: 2020-04-28 Test Time: 17:19:05 Pat Name: LAKIA BENTON Department: Room: [facility] Gender: M Senior Payroll Administrator: LAZ : 1945 Requested By: Kaila Lobo Order Number: [id number] MD: Oswald Bobby Measurements Intervals [place] Rate: 98 P: 12 HI: 180 QRS: 67 QRSD: 125 T: 16 QT: 359 QTc: 459 Interpretive Statements Sinus rhythm Right bundle branch block Compared to ECG 03/25/2020 16:38:29 First degree AV block no longer present Electronically Signed On 04-29-2020 10:10:09 CDT by Oswald Bobby [email or web address] <ELECTRONICALLY SIGNED> By: Oswald Bobby MD, [facility] 04/29/20 1010 1719 1719 Oswald Bobby MD, [facility] /EPI
[2020-04-29 17:34] VITALS: BP 140/77
[2020-04-29 21:00] VITALS: BP 129/57
[2020-04-30 04:29] LABS: HEMATOCRIT 27.6 % (42.0-52.0); HEMOGLOBIN 8.9 gm/dL (14.0-18.0); MCH 26.7 pg (26.0-34.0); MCHC 32.2 g/dL (28.0-37.0); MCV 82.8 fL (80.0-100.0); MPV 7.6 fl. (7.2-11.1); RBC 3.33 mil/uL (4.50-6.00); RDW-CV 16.8 % (10.5-14.5); WBC 5.8 thou/uL (4.0-11.0)
[2020-04-30 04:38] LABS: INR 1.5; PROTIME 15.6 Seconds (9.20-11.50)
[2020-04-30 04:54] LABS: CALCIUM 8.3 mg/dL (8.5-10.1); CREATININE 0.7 mg/dL (0.6-1.3); POTASSIUM 3.4 mmol/L (3.5-5.1)
[2020-04-30 07:50] VITALS: BP 125/56
[2020-04-30 15:23] VITALS: BP 134/62
[2020-04-30 20:00] VITALS: BP 126/63
[2020-05-01 04:26] LABS: HEMATOCRIT 28.7 % (42.0-52.0); HEMOGLOBIN 9.2 gm/dL (14.0-18.0); MCH 26.7 pg (26.0-34.0); MCHC 32.2 g/dL (28.0-37.0); MPV 7.6 fl. (7.2-11.1); RBC 3.45 mil/uL (4.50-6.00); RDW-CV 16.5 % (10.5-14.5)
[2020-05-01 04:39] LABS: INR 1.5; PROTIME 15.1 Seconds (9.20-11.50)
[2020-05-01 04:49] LABS: CALCIUM 8.3 mg/dL (8.5-10.1); CREATININE 0.6 mg/dL (0.6-1.3); POTASSIUM 3.4 mmol/L (3.5-5.1)
[2020-05-01 07:40] VITALS: BP 114/54
[2020-05-01 09:45] LABS: MAGNESIUM 1.8 mg/dL (1.8-2.4); PHOSPHORUS* 3.7 mg/dL (2.5-4.9)
[2020-05-01 16:00] VITALS: BP 135/72
[2020-05-01 21:02] VITALS: BP 146/73
[2020-05-02 04:50] LABS: HEMATOCRIT 29.8 % (42.0-52.0); HEMOGLOBIN 9.8 gm/dL (14.0-18.0); MCH 27.1 pg (26.0-34.0); MCHC 32.8 g/dL (28.0-37.0); MCV 82.8 fL (80.0-100.0); MPV 7.2 fl. (7.2-11.1); RBC 3.6 mil/uL (4.50-6.00); RDW-CV 16.6 % (10.5-14.5); WBC 5.5 thou/uL (4.0-11.0)
[2020-05-02 04:56] LABS: INR 1.6; PROTIME 16.1 Seconds (9.20-11.50)
[2020-05-02 04:58] LABS: CALCIUM 8.4 mg/dL (8.5-10.1); CREATININE 0.6 mg/dL (0.6-1.3); POTASSIUM 3.6 mmol/L (3.5-5.1)
[2020-05-02 10:41] VITALS: BP 118/57
[2020-05-02 21:00] VITALS: BP 143/90
[2020-05-03 11:27] VITALS: BP 122/58
[2020-05-03 21:00] VITALS: BP 152/81
[2020-05-04 05:00] VITALS: BP 138/65
[2020-05-04 05:29] LABS: CALCIUM 8.3 mg/dL (8.5-10.1); CREATININE 0.5 mg/dL (0.6-1.3); POTASSIUM 3.4 mmol/L (3.5-5.1)
[2020-05-04 05:30] LABS: INR 1.7; PROTIME 17.2 Seconds (9.20-11.50)
[2020-05-04 05:37] LABS: HEMATOCRIT 28.8 % (42.0-52.0); HEMOGLOBIN 9.3 gm/dL (14.0-18.0); MCH 26.5 pg (26.0-34.0); MCHC 32.2 g/dL (28.0-37.0); MCV 82.6 fL (80.0-100.0); MPV 7.4 fl. (7.2-11.1); RBC 3.49 mil/uL (4.50-6.00); RDW-CV 16.7 % (10.5-14.5)
[2020-05-05 07:25] VITALS: BP 134/68
[2020-05-05 17:07] VITALS: BP 135/55
[2020-05-06 05:49] LABS: MCHC 32.3 g/dL (28.0-37.0); MCV 83.5 fL (80.0-100.0); MPV 7.1 fl. (7.2-11.1); RBC 3.35 mil/uL (4.50-6.00); RDW-CV 16.9 % (10.5-14.5); WBC 5.9 thou/uL (4.0-11.0)
[2020-05-06 05:56] LABS: CALCIUM 8.6 mg/dL (8.5-10.1); CREATININE 0.6 mg/dL (0.6-1.3); POTASSIUM 3.3 mmol/L (3.5-5.1)
[2020-05-06 08:16] VITALS: BP 106/58
[2020-05-06 15:43] VITALS: BP 134/59
[2020-05-06 20:00] VITALS: BP 109/59
[2020-05-07 04:55] LABS: HEMATOCRIT 28.3 % (42.0-52.0); HEMOGLOBIN 9.3 gm/dL (14.0-18.0); MCH 27.1 pg (26.0-34.0); MCV 82.1 fL (80.0-100.0); MPV 6.9 fl. (7.2-11.1); RBC 3.44 mil/uL (4.50-6.00); RDW-CV 16.8 % (10.5-14.5)
[2020-05-07 05:06] LABS: CALCIUM 8.2 mg/dL (8.5-10.1); CREATININE 0.6 mg/dL (0.6-1.3); POTASSIUM 3.7 mmol/L (3.5-5.1)
[2020-05-07 09:05] VITALS: BP 122/61
[2020-05-07 15:58] VITALS: BP 115/46
[2020-05-07 19:45] VITALS: BP 117/63
[2020-05-08 07:50] VITALS: BP 159/60
[2020-05-08 16:30] VITALS: BP 141/66
[2020-05-08 20:15] VITALS: BP 120/61
[2020-05-09 07:40] VITALS: BP 111/58
[2020-05-09 16:15] VITALS: BP 139/66
[2020-05-09 20:25] VITALS: BP 143/70
[2020-05-10 08:10] VITALS: BP 104/47
[2020-05-10 16:19] VITALS: BP 101/52
[2020-05-10 20:30] VITALS: BP 145/74
[2020-05-11] VITALS (7 sets, daily range): BP systolic 124–149; BP diastolic 64–69
[2020-05-11 04:44] LABS: INR 1.3; PROTIME 13.8 Seconds (9.20-11.50)
[2020-05-12 06:32] LABS: INR 1.3; PROTIME 14.1 Seconds (9.20-11.50)
[2020-05-12 08:00] VITALS: BP 135/72
[2020-05-12 15:01] VITALS: BP 128/69
[2020-05-12 16:11] VITALS: BP 133/59
[2020-05-12 21:00] VITALS: BP 144/64
[2020-05-13 08:00] VITALS: BP 148/86
[2020-05-13 15:22] VITALS: BP 119/59
[2020-05-13 20:00] VITALS: BP 142/65
[2020-05-14 15:21] VITALS: BP 142/79
[2020-05-14 20:00] VITALS: BP 122/49
[2020-05-15 08:50] VITALS: BP 117/58
[2020-05-15 16:37] VITALS: BP 135/72
[2020-05-15 20:10] VITALS: BP 127/66
[2020-05-16 07:45] VITALS: BP 136/64
[2020-05-16 11:21] VITALS: BP 128/69
[2020-05-16 13:59] VITALS: BP 128/69
[2020-05-16 14:46] VITALS: BP 128/69
== END 2020-05-16 13:40 | disposition home health service (06) | DRG 603 ==
LOC: M.ERS 17:03 → M.TBA-ER 19:14 → M.ORTHSURG 19:14
PROVIDERS: Family Medicine; Internal Medicine; Nurse Practitioner Family; ADMIT Internal Medicine; ATTEND Internal Medicine
DX: L03.116 Cellulitis of left lower limb (principal); R65.10 Systemic inflammatory response syndrome (SIRS) of non-infectious origin without acute organ dysfunction; E44.1 Mild protein-calorie malnutrition; D68.59 Other primary thrombophilia; E87.2 Acidosis; L03.115 Cellulitis of right lower limb; G89.29 Other chronic pain; M06.9 Rheumatoid arthritis, unspecified; M54.9 Dorsalgia, unspecified; G20 Parkinson's disease; M19.90 Unspecified osteoarthritis, unspecified site; E11.65 Type 2 diabetes mellitus with hyperglycemia; I25.10 Atherosclerotic heart disease of native coronary artery without angina pectoris; D64.9 Anemia, unspecified; E11.40 Type 2 diabetes mellitus with diabetic neuropathy, unspecified; E66.01 Morbid (severe) obesity due to excess calories; Z20.822 Contact with and (suspected) exposure to COVID-19; Z98.1 Arthrodesis status; Z90.49 Acquired absence of other specified parts of digestive tract; Z79.01 Long term (current) use of anticoagulants; Z79.4 Long term (current) use of insulin; Z79.899 Other long term (current) drug therapy; Z88.8 Allergy status to other drugs, medicaments and biological substances; Z68.31 Body mass index [BMI] 31.0-31.9, adult